=== PATIENT | male | born 1960 | race American Indian/Alaskan Native ===

== ENCOUNTER 2018-02-22 11:34 | Inpatient (IN) | payer MEDICAID ==
[2018-02-22 11:47] VITALS: BMI 17.7
[2018-02-22] MEDS ORDERED: guaiFENesin 100 mg/5 ml Syrup UD PO STA (12:07)
[2018-02-22] MEDS ORDERED: Albuterol-Ipratrop 3 mg / 0.5 (3 ml) UD INH STA (12:07)
[2018-02-22] MEDS ORDERED: guaiFENesin 100 mg/5 ml Syrup UD ONE (12:15)
[2018-02-22] MEDS ORDERED: Albuterol-Ipratrop 3 mg / 0.5 (3 ml) UD ONE (12:15)
[2018-02-22 13:55] LABS: BASO % 0.4 % (0.0-2.0); EOS # 0.1 K/uL (0.0-0.7); EOS % 4.9 % (0.0-4.0); HEMOGLOBIN 9.9 g/dL (12.0-18.0); LYMPH # 0.6 K/uL (1.0-4.3); LYMPH % 24.8 % (20.0-40.0); MEAN CELL VOLUME 92.5 fl (80.0-94.0); MEAN CORPUSCULAR HEMOGLOBIN 32.4 pg (27.0-31.0); MEAN CORPUSCULAR HGB CONC 35.1 g/dL (33.0-37.0); MEAN PLATELET VOLUME 9.1 fl (7.2-11.7); MONO # 0.4 K/uL (0.0-0.8); MONO % 16.8 % (0.0-10.0); NEUT # 1.3 K/uL (1.8-7.0); NEUT % 53.1 % (50.0-75.0); RBC 3.04 Mil/uL (4.40-5.90); RED CELL DISTRIBUTION WIDTH 14.1 % (11.5-14.5)
[2018-02-22 14:07] LABS: ALB/GLOB RATIO 0.7 (1.0-2.1); ALBUMIN 3.8 g/dL (3.5-5.0); ALT/SGPT 20 U/L (21-72); AST/SGOT 36 U/L (17-59); BLOOD UREA NITROGEN 17 mg/dl (9-20); CALCIUM 8.3 mg/dL (8.4-10.2); GFR AFRICAN-AMERICAN > 60; GFR NON-AFRICAN AMERICAN > 60
[2018-02-22 14:15] LABS: INR 1.1 (0.9-1.2); PARTIAL THROMBOPLASTIN TIME 32.5 Seconds (25.6-37.1); PROTHROMBIN TIME 11.9 Seconds (9.8-13.1)
[2018-02-22 14:24] LABS: B-TYPE NATRIURETIC PEPTIDE 126 pg/ml (0-900)
--- NOTE | 2018-02-22 14:33 | RAD ---
Date of service: 02/22/2018 HISTORY: cough COMPARISON: Chest 11/09/2009 TECHNIQUE: Chest PA and lateral FINDINGS: LUNGS: Lungs are hyperinflated suggesting underlying changes of COPD or emphysema. There also appears to be some mild bibasilar atelectasis and or scarring left greater than right. Small calcified granuloma right lateral upper lung field overlying the right anterior 4th and right posterior 7th ribs . There may also be a cluster of tiny calcifications right lateral lower lung zone near the CP angle region. . There is a small approximately 6.6 mm elliptical shaped nodular density left mid to lower lung zone in the mid clavicular line which could represent vessel on end artifact with small nodule not excluded. Followup nonemergent CT scan of the chest recommended. PLEURA: Mild biapical pleural thickening. No effusion or basilar pneumothorax CARDIOVASCULAR: Normal. OSSEOUS STRUCTURES: No significant abnormalities. VISUALIZED UPPER ABDOMEN: Normal. OTHER FINDINGS: None. IMPRESSION: Lungs are hyperinflated suggesting underlying changes of COPD or emphysema. There also appears to be some mild bibasilar atelectasis and or scarring left greater than right. Small calcified granuloma right lateral upper lung field overlying the right anterior 4th and right posterior 7th ribs . There may also be a cluster of tiny calcifications right lateral lower lung zone near the CP angle region. There is a small approximately 6.6 mm elliptical shaped nodular density left mid to lower lung zone in the mid clavicular line which could represent vessel on end artifact with small nodule not excluded. Followup nonemergent CT scan of the chest recommended. . Note this report was placed in PA review folder for followup
--- NOTE | 2018-02-22 14:36 | ED PDOC ---
HPI: SOB/CHF/COPD Time Seen by Provider: 02/22/18 11:52 Chief Complaint (Nursing): Shortness Of Breath Chief Complaint (Provider): Cough History Per: Patient History/Exam Limitations: no limitations Onset/Duration Of Symptoms: Days (x3) Current Symptoms Are (Timing): Still Present Associated Symptoms: Chest Pain. denies: Fever, Chills, Bloody Cough Additional Complaint(s): 57 year old male presents to the emergency department for evaluation of a wet cough productive of yellow phlegm x3 days. Patient reports that this morning at 9am he had a 10 minute episode of burning, sternal, nonradiating chest pain that resolved spontaneously. He states that he took no medications prior to arrival. Denies fever, chills, sick contacts, travel, ear or throat pain, prolonged immobility, personal or family history of heart disease, leg tenderness or swelling. Of note: Patient states that he is HIV postive and has not taken his medications in a month. Cannot recall last viral load. PMD: cannot recall, in [facility] Past Medical History Reviewed: Historical Data, Nursing Documentation, Vital Signs Vital Signs: Last Vital Signs Temp 98.5 F 02/22/18 16:08 Pulse 71 02/22/18 16:39 Resp 16 02/22/18 16:08 BP 150/89 02/22/18 16:08 Pulse Ox 93 L 02/22/18 16:39 - Medical History PMH: COPD, HIV - Surgical History Surgical History: No Surg Hx - Family History Family History: States: Unknown Family Hx - Social History Current smoker - smoking cessation education provided: Yes (3 cigarettes a day) Alcohol: None Drugs: Other (heroin) - Home Medications Home Medications: Ambulatory Orders Medication Instructions Recorded Methadone [Methadose] 70 mg PO DAILY 02/22/18 - Allergies Allergies/Adverse Reactions: Allergies Allergy/AdvReac Type Severity Reaction Status Date / Time No Known Allergies Allergy Verified 02/22/18 11:53 Review of Systems Constitutional: Negative for: Fever Cardiovascular: Positive for: Chest Pain Respiratory: Positive for: Cough (wet cough productive of yellow sputum). Negative for: Shortness of Breath Physical Exam - Reviewed Nursing Documentation Reviewed: Yes Vital Signs Reviewed: Yes - Physical Exam Comments: GENERAL APPEARANCE: Patient is awake, alert, oriented x 3, in no acute distress. Resting comfortably. SKIN: Warm, dry; (-) cyanosis. EYES: (-) conjunctival pallor. ENMT: Mucous membranes moist. Airway patent: (-) stridor. NECK: Supple, FROM (-) tenderness, (-) stiffness CHEST AND RESPIRATORY: (-) rhonchi, (-) rales, (-) wheezes, (-) pleural rub; breath sounds equal bilaterally. Speaking in full sentences, respirations even and nonlabored. HEART AND CARDIOVASCULAR: (-) irregularity; (-) murmur ABDOMEN AND GI: Soft; (-) tenderness (-) guarding (-) distention. EXTREMITIES: (-) deformity; (-) edema. NEURO AND PSYCH: Mental status as above. Cranial nerves grossly intact; strength symmetric. EOMI and painless. Speech clear. (-) focal deficit (-) facial asymmetry - Laboratory Results Result Diagrams: 02/22/18 12:41 02/22/18 12:41 - ECG ECG: Positive for: Viewed By Me ECG Rhythm: Negative for: ST/T Changes Rate: 71 (QTc 430, (+) LVH) O2 Sat by Pulse Oximetry: 93 (RA) Pulse Ox Interpretation: Normal (in patient with COPD) Medical Decision Making Medical Decision Makin Initial Impression 57 year old male presenting with cough r/o pneumonia Initial plan: * EKG * B-type Natriuretic * CMP * Drug Screen * Troponin * CBC * Partial Thromboplastin * Prothrombin Time * CXR * HIV-1 RNA, QL TMA * CD4/CD8 lymphocyte subset panel 4 * Albuterol 3 mL INH * Robitussin 200 mg PO * Reevaluation 1435 CXR reviewed, radiology report follows Date of service: 02/22/2018 HISTORY: cough COMPARISON: Chest 11/09/2009 TECHNIQUE: Chest PA and lateral FINDINGS: LUNGS: Lungs are hyperinflated suggesting underlying changes of COPD or emphysema. There also appears to be some mild bibasilar atelectasis and or scarring left greater than right. Small calcified granuloma right lateral upper lung field overlying the right anterior 4th and right posterior 7th ribs . There may also be a cluster of tiny calcifications right lateral lower lung zone near the CP angle region. . There is a small approximately 6.6 mm elliptical shaped nodular density left mid to lower lung zone in the mid clavicular line which could represent vessel on end artifact with small nodule not excluded. Followup nonemergent CT scan of the chest recommended. PLEURA: Mild biapical pleural thickening. No effusion or basilar pneumothorax CARDIOVASCULAR: Normal. OSSEOUS STRUCTURES: No significant abnormalities. VISUALIZED UPPER ABDOMEN: Normal. OTHER FINDINGS: None. IMPRESSION: Lungs are hyperinflated suggesting underlying changes of COPD or emphysema. There also appears to be some mild bibasilar atelectasis and or scarring left greater than right. Small calcified granuloma right lateral upper lung field overlying the right anterior 4th and right posterior 7th ribs . There may also be a cluster of tiny calcifications right lateral lower lung zone near the CP angle region. There is a small approximately 6.6 mm elliptical shaped nodular density left mid to lower lung zone in the mid clavicular line which could represent vessel on end artifact with small nodule not excluded. Followup nonemergent CT scan of the chest recommended. Note this report was placed in PA review folder for followup Labs reviewed. (+) thrombocytopenia (+) leukocytopenia (+) pancytopenia Case discussed with Dr Cunha, who recommends admission at this time. Consult placed to Dr Velasquez, hospitalist. CT chest without contrast ordered for further evaluation of lung nodules. Repeat O2: 98% on RA [address] Velasquez who is agreeable to evaluating patient in the ED. [address] Velasquez's evaluation, patient to be admitted to obs med/surg for pancytopenia, chest pain, cough r/o AIDs Arrangements made for admission. Patient agreeable to admission. Vitals stable. 1630 CT reviewed, radiology report follows Date of service: 02/22/2018 PROCEDURE: CT Chest without contrast HISTORY: nodules on XR, cough COMPARISON: None. TECHNIQUE: Contiguous axial images were obtained through the chest without intravenous contrast enhancement. Sagittal and coronal reconstructions were performed. Radiation dose (DLP): 167.7 MGy-cm. This CT exam was performed using one or more of the following dose reduction techniques: Automated exposure control, adjustment of the mA and/or kV according to patient size, and/or use of iterative reconstruction technique. FINDINGS: LUNGS: Significant centrilobular emphysematous changes are noted. . Bullous and bleb changes are also present the largest bulla in the left anteromedial upper lung field. In addition, there are of coarsened interstitial markings a particularly notable in the lung bases with passive/dependent type atelectasis. Small cluster of alveolar-type opacities in the right lower lobe bordering the posterior pleural surface and another in the right posterior sulcus could represent developing infiltrates. There is a small calcified granuloma in the right anterolateral lower lobe. MEDIASTINUM: Heart appears enlarged. . There also appears to be trace pericardial effusion. Unremarkable thoracic aorta. No aneurysm. Normal sized heart. Main pulmonary artery unremarkable. No vascular congestion. No significant mediastinal lymphadenopathy however note that the evaluation for hilar adenopathy limited due to the lack of circulating intravenous contrast material. Small hiatal hernia PLEURA: No effusion. No evidence of pneumothorax. BONES: Minor multilevel degenerative spondylosis of the lumbar spine. UPPER ABDOMEN: Few tiny calcified granulomata seen throughout the splenic parenchyma consistent with the prior exposure to granulomatous disease process OTHER FINDINGS: None. IMPRESSION: Significant centrilobular emphysematous changes are noted. . Bullous and bleb changes are also present the largest bulla in the left anteromedial upper lung field. In addition, there are of coarsened interstitial markings a particularly notable in the lung bases with passive/dependent type atelectasis. Small cluster of alveolar-type opacities in the right lower lobe bordering the posterior pleural surface and another in the right posterior sulcus could represent developing infiltrates. There is a small calcified granuloma in the right anterolateral lower lobe. Documented by Anahi Akhtar acting as a scribe for Brooklyn Lord PA-C. All medical record entries made by the Scribe were at my direction and personally dictated by me. I have reviewed the chart and agree that the record accurately reflects my personal performance of the history, physical exam, medical decision making, and the department course for this patient. I have also personally directed, reviewed, and agree with the discharge instructions and disposition. Disposition - Clinical Impression Clinical Impression: Pancytopenia, Cough in adult, HIV disease, Chest pain in adult - Patient ED Disposition Is Patient to be Admitted: Yes Discussed With : Myles D Velasquez Doctor Will See Patient In The: Hospital Counseled Patient/Family Regarding: Diagnosis - Disposition Disposition Time: 15:10 Condition: FAIR - Pt Status Changed To: Hospital Disposition Of: Inpatient - Admit Certification Admit to Inpatient:: After my assessment, the patient will require hospitalization for at least two midnights. This is because of the severity of symptoms shown, intensity of services needed, and/or the medical risk in this patient being treated as an outpatient. - POA Present On Arrival: None Results - Lab Results Lab Results: 02/22/18 02/22/18 02/22/18 12:41 12:41 12:41 WBC 2.5 L RBC 3.04 L Hgb 9.9 L Hct 28.1 L MCV 92.5 MCH 32.4 H MCHC 35.1 RDW 14.1 Plt Count 29 L* MPV 9.1 Neut % (Auto) 53.1 Lymph % (Auto) 24.8 [facility] % (Auto) 16.8 H Eos % (Auto) 4.9 H Baso % (Auto) 0.4 Neut # (Auto) 1.3 L Lymph # (Auto) 0.6 L [facility] # (Auto) 0.4 Eos # (Auto) 0.1 Baso # (Auto) 0.0 PT 11.9 INR 1.1 APTT 32.5 Sodium 139 Potassium 3.9 Chloride 106 Carbon Dioxide 24 Anion Gap 13 BUN 17 Creatinine 0.7 L Est GFR ( Amer) > 60 Est GFR (Non-Af Amer) > 60 Random Glucose 64 L Calcium 8.3 L Total Bilirubin 0.5 AST 36 ALT 20 L Alkaline Phosphatase 68 Troponin I < 0.0120 NT-Pro-B Natriuret Pep 126 Total Protein 9.1 H Albumin 3.8 Globulin 5.3 H Albumin/Globulin Ratio 0.7 L
--- NOTE | 2018-02-22 15:44 | CP.PCM.HP ---
History of Present Illness - History of Present Illness History of Present Illness: 57 yo male with history of HIV since 1997 and on triple therapy but missed taking it for over a month came in because of coughing productive with yellow sputum since 3 days ago. Pleuritic chest pain noted during couging. Denied fever or SOB. Patient is from [place] and is being followed up by a physician there. He claimed he lost his medications and was just here visiting a friend in [place]. Present on Admission - Present on Admission Any Indicators Present on Admission: No History of DVT/PE: No History of Uncontrolled Diabetes: No Urinary Catheter: No Decubitus Ulcer Present: No Review of Systems - Review of Systems All systems: reviewed and no additional remarkable complaints except (aside from those mentioned above, 12 point system review were negative by me) Past Patient History - Tetanus Immunizations Tetanus Immunization: Unknown - Past Social History Smoking Status: Light Smoker < 10 Cigarettes Daily Chewing Tobacco Use: No Cigar Use: No Alcohol: None Drugs: Denies, Other (heroin) Home Situation {Lives}: Friends - HEMATOLOGICAL/ONCOLOGICAL Hx Human Immunodeficiency Virus (HIV): Yes - PSYCHIATRIC Hx Substance Use: No - SURGICAL HISTORY Hx Surgeries: No - ANESTHESIA Hx Anesthesia: No Meds Allergies/Adverse Reactions: Allergies Allergy/AdvReac Type Severity Reaction Status Date / Time No Known Allergies Allergy Verified 02/22/18 11:53 Physical Exam - Constitutional Appears: No Acute Distress, Cachectic - Head Exam Head Exam: ATRAUMATIC - Eye Exam Eye Exam: absent: Scleral icterus - ENT Exam ENT Exam: Mucous Membranes Moist - Neck Exam Neck exam: Negative for: Meningismus - Respiratory Exam Respiratory Exam: absent: Rales, Rhonchi, Wheezes, Respiratory Distress - Cardiovascular Exam Cardiovascular Exam: REGULAR RHYTHM, +S1, +S2 - GI/Abdominal Exam GI & Abdominal Exam: Soft. absent: Tenderness - Rectal Exam Rectal Exam: Deferred - Extremities Exam Extremities exam: Negative for: pedal edema - Neurological Exam Neurological exam: Alert, Oriented x3 - Psychiatric Exam Psychiatric exam: Normal Affect - Skin Skin Exam: Dry, Intact Results - Vital Signs Recent Vital Signs: Last Vital Signs Temp 98.5 F 02/22/18 14:57 Pulse 74 02/22/18 14:57 Resp 20 02/22/18 14:57 BP 146/92 H 02/22/18 15:25 Pulse Ox 93 L 02/22/18 15:20 - Labs Result Diagrams: 02/22/18 12:41 02/22/18 12:41 Labs: Laboratory Results - last 24 hr 02/22/18 02/22/18 02/22/18 12:41 12:41 12:41 WBC 2.5 L RBC 3.04 L Hgb 9.9 L Hct 28.1 L MCV 92.5 MCH 32.4 H MCHC 35.1 RDW 14.1 Plt Count 29 L* MPV 9.1 Neut % (Auto) 53.1 Lymph % (Auto) 24.8 [facility] % (Auto) 16.8 H Eos % (Auto) 4.9 H Baso % (Auto) 0.4 Neut # (Auto) 1.3 L Lymph # (Auto) 0.6 L [facility] # (Auto) 0.4 Eos # (Auto) 0.1 Baso # (Auto) 0.0 PT 11.9 INR 1.1 APTT 32.5 Sodium 139 Potassium 3.9 Chloride 106 Carbon Dioxide 24 Anion Gap 13 BUN 17 Creatinine 0.7 L Est GFR ( Amer) > 60 Est GFR (Non-Af Amer) > 60 Random Glucose 64 L Calcium 8.3 L Total Bilirubin 0.5 AST 36 ALT 20 L Alkaline Phosphatase 68 Troponin I < 0.0120 NT-Pro-B Natriuret Pep 126 Total Protein 9.1 H Albumin 3.8 Globulin 5.3 H Albumin/Globulin Ratio 0.7 L Assessment & Plan - Assessment and Plan (Free Text) Assessment: 57 yo male with history of COPD and HIV since 1997 and on triple therapy but missed taking it for over a month came in because of coughing productive with yellow sputum since 3 days ago. Pleuritic chest pain noted during coughing. Denied fever or SOB. 1. HIV patient on Triple anti-viral but not sure what doses follow up CD4/CD8 result ID consult with Dr Bay 2. Right Lower Lobe Infiltrate (CT scan) sputum and blood culture Rocephin 1gm IV daily Zithromax 500mg IV daily 3. Pancytopenia probably secondary to HIV hematology consult with Dr Osorio 4. Heroin Abuser on Methadone 70mg PO daily 5. DVT prophylaxis venodyne boots while in bed avoid anti-coagulant because of low platelets
[2018-02-22] MEDS ORDERED: Albuterol-Ipratrop 3 mg / 0.5 (3 ml) UD INH PRN (16:02)
--- NOTE | 2018-02-22 16:19 | CT ---
Date of service: 02/22/2018 PROCEDURE: CT Chest without contrast HISTORY: nodules on XR, cough COMPARISON: None. TECHNIQUE: Contiguous axial images were obtained through the chest without intravenous contrast enhancement. Sagittal and coronal reconstructions were performed. Radiation dose (DLP): 167.7 MGy-cm. This CT exam was performed using one or more of the following dose reduction techniques: Automated exposure control, adjustment of the mA and/or kV according to patient size, and/or use of iterative reconstruction technique. FINDINGS: LUNGS: Significant centrilobular emphysematous changes are noted. . Bullous and bleb changes are also present the largest bulla in the left anteromedial upper lung field. In addition, there are of coarsened interstitial markings a particularly notable in the lung bases with passive/dependent type atelectasis. Small cluster of alveolar-type opacities in the right lower lobe bordering the posterior pleural surface and another in the right posterior sulcus could represent developing infiltrates. There is a small calcified granuloma in the right anterolateral lower lobe. MEDIASTINUM: Heart appears enlarged. . There also appears to be trace pericardial effusion. Unremarkable thoracic aorta. No aneurysm. Normal sized heart. Main pulmonary artery unremarkable. No vascular congestion. No significant mediastinal lymphadenopathy however note that the evaluation for hilar adenopathy limited due to the lack of circulating intravenous contrast material. Small hiatal hernia PLEURA: No effusion. No evidence of pneumothorax. BONES: Minor multilevel degenerative spondylosis of the lumbar spine. UPPER ABDOMEN: Few tiny calcified granulomata seen throughout the splenic parenchyma consistent with the prior exposure to granulomatous disease process OTHER FINDINGS: None. IMPRESSION: Significant centrilobular emphysematous changes are noted. . Bullous and bleb changes are also present the largest bulla in the left anteromedial upper lung field. In addition, there are of coarsened interstitial markings a particularly notable in the lung bases with passive/dependent type atelectasis. Small cluster of alveolar-type opacities in the right lower lobe bordering the posterior pleural surface and another in the right posterior sulcus could represent developing infiltrates. There is a small calcified granuloma in the right anterolateral lower lobe.
[2018-02-22 17:21] LABS: BARBITURATES, UR NEGATIVE (NEGATIVE); BENZODIAZEPINES, UR NEGATIVE (NEGATIVE); OPIATES, UR POSITIVE (NEGATIVE); PHENCYCLIDINE, UR NEGATIVE (NEGATIVE)
[2018-02-22] MEDS ORDERED: Sodium Chloride 3% for Inhalation 4 ML VIAL.NEB IH PRN (18:53)
--- NOTE | 2018-02-22 18:55 | CP.PCM.CON ---
History of Present Illness - History of Present Illness History of Present Illness: Infectious Disease Consultation Note- asked to see this patient at the request of hospitalist HPI- Patient is a 57 year old male with HIV who was admitted yesterday for c/o cough with productive of phlegm and some sob for past 3 days. Denied fever or SOB. Patient is from [place] and is being followed up by a physician there. He claimed he lost his medications and was just here visiting a friend in [place]. he states he was on prezista/norvir , truvada but recently his doctor in [place] changed his regimen but he does not recall the name of the new regimen. He states his CD4 has never been high. He states he feels better since admission here and denies any fever or chills. still has cough but is less than before and no sob today. he states his appetite is good and denies any nausea or vomiting. denies any diarrhea, denies any abd. pain, denies any dysurea. Review of Systems - Review of Systems Review of Systems: ROS- as stated HPi Past Patient History - Tetanus Immunizations Tetanus Immunization: Unknown - Past Medical History & Family History Past Medical History?: Yes - Past Social History Smoking Status: Light Smoker < 10 Cigarettes Daily - CARDIAC Hx Cardiac Disorders: No - PULMONARY Hx Respiratory Disorders: Yes Hx Chronic Obstructive Pulmonary Disease (COPD): Yes - NEUROLOGICAL Hx Neurological Disorder: No - HEENT Hx HEENT Problems: No - RENAL Hx Chronic Kidney Disease: No - ENDOCRINE/METABOLIC Hx Endocrine Disorders: No - HEMATOLOGICAL/ONCOLOGICAL Hx Blood Disorders: Yes Hx Human Immunodeficiency Virus (HIV): Yes - INTEGUMENTARY Hx Dermatological Problems: No - MUSCULOSKELETAL/RHEUMATOLOGICAL Hx Musculoskeletal Disorders: No Hx Falls: No - GASTROINTESTINAL Hx Gastrointestinal Disorders: No - GENITOURINARY/GYNECOLOGICAL Hx Genitourinary Disorders: No - PSYCHIATRIC Hx Psychophysiologic Disorder: No Hx Substance Use: Yes (heroin) - SURGICAL HISTORY Hx Surgeries: No - ANESTHESIA Hx Anesthesia: No Hx Anesthesia Reactions: No Hx Malignant Hyperthermia: No Has any member of the family had a problem w/ anesthesia?: No Meds Allergies/Adverse Reactions: Allergies Allergy/AdvReac Type Severity Reaction Status Date / Time No Known Allergies Allergy Verified 02/22/18 11:53 - Medications Medications: Current Medications Albuterol/Ipratropium (Duoneb 3 Mg/0.5 Mg (3 Ml) Ud) 3 ml INH RQ6 PRN PRN Reason: Shortness of Breath Docusate Sodium (Colace) 100 mg PO BID [facility] Last Admin: 02/22/18 17:35 Dose: 100 mg Pantoprazole Sodium (Protonix Ec Tab) 40 mg PO DAILY [facility] Physical Exam - Constitutional Appears: No Acute Distress - Head Exam Head Exam: ATRAUMATIC - Eye Exam Eye Exam: EOMI - ENT Exam ENT Exam: Normal Oropharynx - Neck Exam Neck exam: Positive for: Full Rom - Respiratory Exam Respiratory Exam: NORMAL BREATHING PATTERN Additional comments: good aeration b/l no wheezing slightly decreased at right base - Cardiovascular Exam Cardiovascular Exam: RRR, +S1, +S2 - GI/Abdominal Exam GI & Abdominal Exam: Normal Bowel Sounds, Soft Additional comments: NT, ND - Extremities Exam Extremities exam: Positive for: normal inspection - Neurological Exam Neurological exam: Alert, Oriented x3 Results - Vital Signs Recent Vital Signs: Last Vital Signs Temp 98.1 F 02/22/18 17:23 Pulse 60 02/22/18 17:23 Resp 18 02/22/18 17:23 BP 158/89 H 02/22/18 17:23 Pulse Ox 97 02/22/18 17:23 - Labs Result Diagrams: 02/23/18 05:25 02/23/18 05:25 Labs: Laboratory Results - last 24 hr 02/22/18 02/22/18 02/22/18 12:41 12:41 12:41 WBC 2.5 L RBC 3.04 L Hgb 9.9 L Hct 28.1 L MCV 92.5 MCH 32.4 H MCHC 35.1 RDW 14.1 Plt Count 29 L* MPV 9.1 Neut % (Auto) 53.1 Lymph % (Auto) 24.8 [place] % (Auto) 16.8 H Eos % (Auto) 4.9 H Baso % (Auto) 0.4 Neut # (Auto) 1.3 L Lymph # (Auto) 0.6 L [place] # (Auto) 0.4 Eos # (Auto) 0.1 Baso # (Auto) 0.0 PT 11.9 INR 1.1 APTT 32.5 Sodium 139 Potassium 3.9 Chloride 106 Carbon Dioxide 24 Anion Gap 13 BUN 17 Creatinine 0.7 L Est GFR ( Amer) > 60 Est GFR (Non-Af Amer) > 60 Random Glucose 64 L Calcium 8.3 L Total Bilirubin 0.5 AST 36 ALT 20 L Alkaline Phosphatase 68 Troponin I < 0.0120 NT-Pro-B Natriuret Pep 126 Total Protein 9.1 H Albumin 3.8 Globulin 5.3 H Albumin/Globulin Ratio 0.7 L Urine Opiates Screen Urine Methadone Screen Ur Barbiturates Screen Ur Phencyclidine Scrn Ur Amphetamines Screen U Benzodiazepines Scrn U Oth Cocaine Metabols U Cannabinoids Screen 02/22/18 16:30 WBC RBC Hgb Hct MCV MCH MCHC RDW Plt Count MPV Neut % (Auto) Lymph % (Auto) [place] % (Auto) Eos % (Auto) Baso % (Auto) Neut # (Auto) Lymph # (Auto) [place] # (Auto) Eos # (Auto) Baso # (Auto) PT INR APTT Sodium Potassium Chloride Carbon Dioxide Anion Gap BUN Creatinine Est GFR ( Amer) Est GFR (Non-Af Amer) Random Glucose Calcium Total Bilirubin AST ALT Alkaline Phosphatase Troponin I NT-Pro-B Natriuret Pep Total Protein Albumin Globulin Albumin/Globulin Ratio Urine Opiates Screen Positive H Urine Methadone Screen Positive H Ur Barbiturates Screen Negative Ur Phencyclidine Scrn Negative Ur Amphetamines Screen Negative U Benzodiazepines Scrn Negative U Oth Cocaine Metabols Positive H U Cannabinoids Screen Negative Laboratory Results - last 72 hr 02/22/18 02/22/18 02/22/18 12:41 12:41 12:41 WBC 2.5 L RBC 3.04 L Hgb 9.9 L Hct 28.1 L MCV 92.5 MCH 32.4 H MCHC 35.1 RDW 14.1 Plt Count 29 L* MPV 9.1 Neut % (Auto) 53.1 Lymph % (Auto) 24.8 [place] % (Auto) 16.8 H Eos % (Auto) 4.9 H Baso % (Auto) 0.4 Neut # (Auto) 1.3 L Lymph # (Auto) 0.6 L [place] # (Auto) 0.4 Eos # (Auto) 0.1 Baso # (Auto) 0.0 PT 11.9 INR 1.1 APTT 32.5 Sodium 139 Potassium 3.9 Chloride 106 Carbon Dioxide 24 Anion Gap 13 BUN 17 Creatinine 0.7 L Est GFR ( Amer) > 60 Est GFR (Non-Af Amer) > 60 Random Glucose 64 L Calcium 8.3 L Total Bilirubin 0.5 AST 36 ALT 20 L Alkaline Phosphatase 68 Troponin I < 0.0120 NT-Pro-B Natriuret Pep 126 Total Protein 9.1 H Albumin 3.8 Globulin 5.3 H Albumin/Globulin Ratio 0.7 L Urine Opiates Screen Urine Methadone Screen Ur Barbiturates Screen Ur Phencyclidine Scrn Ur Amphetamines Screen U Benzodiazepines Scrn U Oth Cocaine Metabols U Cannabinoids Screen 02/22/18 02/23/18 02/23/18 16:30 05:25 05:25 WBC 1.8 L* RBC 3.54 L Hgb 11.1 L Hct 32.3 L MCV 91.1 MCH 31.2 H MCHC 34.3 RDW 13.8 Plt Count 44 L MPV 9.1 Neut % (Auto) 50.5 Lymph % (Auto) 30.3 [place] % (Auto) 12.9 H Eos % (Auto) 5.3 H Baso % (Auto) 1.0 Neut # (Auto) 0.9 L Lymph # (Auto) 0.5 L [place] # (Auto) 0.2 Eos # (Auto) 0.1 Baso # (Auto) 0.0 PT INR APTT Sodium 140 Potassium 3.9 Chloride 105 Carbon Dioxide 25 Anion Gap 14 BUN 13 Creatinine 0.7 L Est GFR ( Amer) > 60 Est GFR (Non-Af Amer) > 60 Random Glucose 91 Calcium 8.8 Total Bilirubin AST ALT Alkaline Phosphatase Troponin I NT-Pro-B Natriuret Pep Total Protein Albumin Globulin Albumin/Globulin Ratio Urine Opiates Screen Positive H Urine Methadone Screen Positive H Ur Barbiturates Screen Negative Ur Phencyclidine Scrn Negative Ur Amphetamines Screen Negative U Benzodiazepines Scrn Negative U Oth Cocaine Metabols Positive H U Cannabinoids Screen Negative Accession No. : [id number] Patient Name / ID : RONDA HICKS / [id number] Exam Date : 02/22/2018 11:59:27 ( Approved ) Study Comment : Sex / Age : M / 57Y Creator : Hermilo Betts MD Dictator : Greens Planter : Seasonal Greenery Bundler : Hermilo Betts MD Approver2 : Report Date : 02/22/2018 14:30:29 My Comment : Date of service: 02/22/2018 HISTORY: cough COMPARISON: Chest 11/09/2009 TECHNIQUE: Chest PA and lateral FINDINGS: LUNGS: Lungs are hyperinflated suggesting underlying changes of COPD or emphysema. There also appears to be some mild bibasilar atelectasis and or scarring left greater than right. Small calcified granuloma right lateral upper lung field overlying the right anterior 4th and right posterior 7th ribs . There may also be a cluster of tiny calcifications right lateral lower lung zone near the CP angle region. . There is a small approximately 6.6 mm elliptical shaped nodular density left mid to lower lung zone in the mid clavicular line which could represent vessel on end artifact with small nodule not excluded. Followup nonemergent CT scan of the chest recommended. PLEURA: Mild biapical pleural thickening. No effusion or basilar pneumothorax CARDIOVASCULAR: Normal. OSSEOUS STRUCTURES: No significant abnormalities. VISUALIZED UPPER ABDOMEN: Normal. OTHER FINDINGS: None. IMPRESSION: Lungs are hyperinflated suggesting underlying changes of COPD or emphysema. There also appears to be some mild bibasilar atelectasis and or scarring left greater than right. Small calcified granuloma right lateral upper lung field overlying the right anterior 4th and right posterior 7th ribs . There may also be a cluster of tiny calcifications right lateral lower lung zone near the CP angle region. There is a small approximately 6.6 mm elliptical shaped nodular density left mid to lower lung zone in the mid clavicular line which could represent vessel on end artifact with small nodule not excluded. Followup nonemergent CT scan of the chest recommended. . Note this report was placed in PA review folder for followup Accession No. : [id number] Patient Name / ID : RONDA HICKS / [id number] Exam Date : 02/22/2018 15:04:21 ( Approved ) Study Comment : Sex / Age : M / 57Y Creator : Hermilo Betts MD Dictator : Greens Planter : Seasonal Greenery Bundler : Hermilo Betts MD Approver2 : Report Date : 02/22/2018 16:17:33 My Comment : Date of service: 02/22/2018 PROCEDURE: CT Chest without contrast HISTORY: nodules on XR, cough COMPARISON: None. TECHNIQUE: Contiguous axial images were obtained through the chest without intravenous contrast enhancement. Sagittal and coronal reconstructions were performed. Radiation dose (DLP): 167.7 MGy-cm. This CT exam was performed using one or more of the following dose reduction techniques: Automated exposure control, adjustment of the mA and/or kV according to patient size, and/or use of iterative reconstruction technique. FINDINGS: LUNGS: Significant centrilobular emphysematous changes are noted. . Bullous and bleb changes are also present the largest bulla in the left anteromedial upper lung field. In addition, there are of coarsened interstitial markings a particularly notable in the lung bases with passive/dependent type atelectasis. Small cluster of alveolar-type opacities in the right lower lobe bordering the posterior pleural surface and another in the right posterior sulcus could represent developing infiltrates. There is a small calcified granuloma in the right anterolateral lower lobe. MEDIASTINUM: Heart appears enlarged. . There also appears to be trace pericardial effusion. Unremarkable thoracic aorta. No aneurysm. Normal sized heart. Main pulmonary artery unremarkable. No vascular congestion. No significant mediastinal lymphadenopathy however note that the evaluation for hilar adenopathy limited due to the lack of circulating intravenous contrast material. Small hiatal hernia PLEURA: No effusion. No evidence of pneumothorax. BONES: Minor multilevel degenerative spondylosis of the lumbar spine. UPPER ABDOMEN: Few tiny calcified granulomata seen throughout the splenic parenchyma consistent with the prior exposure to granulomatous disease process OTHER FINDINGS: None. IMPRESSION: Significant centrilobular emphysematous changes are noted. . Bullous and bleb changes are also present the largest bulla in the left anteromedial upper lung field. In addition, there are of coarsened interstitial markings a particularly notable in the lung bases with passive/dependent type atelectasis. Small cluster of alveolar-type opacities in the right lower lobe bordering the posterior pleural surface and another in the right posterior sulcus could represent developing infiltrates. There is a small calcified granuloma in the right anterolateral lower lobe. Assessment & Plan (1) Cough in adult Status: Acute (2) HIV disease Status: Acute (3) Pancytopenia Status: Acute (4) Pneumonia Status: Acute (5) COPD (chronic obstructive pulmonary disease) Status: Acute (6) Lung granuloma Status: Acute - Assessment and Plan (Free Text) Assessment: A/P- 57 year old male with hIV was on HAARt meds apparently has not taken it in [place] admitted with cough and sob and found to have b/l lung abse ? atelectasisi vs infiltrates and granuloma lesion in lung and some calcifications in lung as per CT report and CXr report read by radiologist. afebrile leukopenic but not neutropenic his ANC is 900. pancytopenia could be secondary to HIV marrow infiltration itself vs other etiology such as disseminated MAC. plan- check CD4 and VL. check quantiferon Gold. would advise to r/o MTB with sputum AFB x 3. Place on [facility] isolation check regular sputum cx aswell. check mycoplasma serology and urine legionella AG. agree with ceftriaxone and zithromax to cover for CAP. would also advise pulmonary evaluation. Thank you for allowing me to take part in the care of this patient. All above d/w patient and he agrees with above plan of care.
[2018-02-22 20:15] LABS: WHITE BLOOD COUNT 2.5 K/uL (4.8-10.8)
[2018-02-23 06:32] LABS: EOS # 0.1 K/uL (0.0-0.7); EOS % 5.3 % (0.0-4.0); HEMOGLOBIN 11.1 g/dL (12.0-18.0); LYMPH # 0.5 K/uL (1.0-4.3); LYMPH % 30.3 % (20.0-40.0); MEAN CELL VOLUME 91.1 fl (80.0-94.0); MEAN CORPUSCULAR HEMOGLOBIN 31.2 pg (27.0-31.0); MEAN CORPUSCULAR HGB CONC 34.3 g/dL (33.0-37.0); MEAN PLATELET VOLUME 9.1 fl (7.2-11.7); MONO # 0.2 K/uL (0.0-0.8); MONO % 12.9 % (0.0-10.0); NEUT # 0.9 K/uL (1.8-7.0); NEUT % 50.5 % (50.0-75.0); NRBC % 0.2 % (0.0-0.0); RBC 3.54 Mil/uL (4.40-5.90); RED CELL DISTRIBUTION WIDTH 13.8 % (11.5-14.5)
[2018-02-23 06:44] LABS: WHITE BLOOD COUNT 1.8 K/uL (4.8-10.8)
[2018-02-23 07:01] LABS: BLOOD UREA NITROGEN 13 mg/dl (9-20); CALCIUM 8.8 mg/dL (8.4-10.2); GFR AFRICAN-AMERICAN > 60; GFR NON-AFRICAN AMERICAN > 60
--- NOTE | 2018-02-23 08:18 | CP.PCM.PN ---
Subjective - Date & Time of Evaluation Date of Evaluation: 02/23/18 Time of Evaluation: 08:17 - Subjective Subjective: pt states he feels well today no sob, cp, calf tenderness hd stable nad placed on precautions today Objective - Vital Signs/Intake and Output Vital Signs (last 24 hours): Temp Pulse Resp BP Pulse Ox 98.5 F 60 19 157/79 H 97 02/23/18 00:00 02/23/18 00:00 02/23/18 00:00 02/23/18 00:00 02/23/18 00:00 Vitals Reviewed GEN: WDWN, alert, cooperative HEENT: NCAT, PERRL, EOMI HEART: RRR, +S1S2, NO MRG LUNG: CTAB, NO WRR ABD: soft, NT, ND, No HSM, No masses EXT: normal pedal pulses, normal capillary refill NEURO: awake, alert, no focal deficits SKIN: warm, dry PSYCH: normal mood, normal affect - Medications Medications: Current Medications Albuterol/Ipratropium (Duoneb 3 Mg/0.5 Mg (3 Ml) Ud) 3 ml INH RQ6 PRN PRN Reason: Shortness of Breath Docusate Sodium (Colace) 100 mg PO BID [facility] Last Admin: 02/22/18 17:35 Dose: 100 mg Azithromycin 500 mg/ Sodium (Chloride) 250 mls @ 250 mls/hr IVPB DAILY [facility] PRN Reason: Protocol Ceftriaxone Sodium 1 gm/ (Sodium Chloride) 100 mls @ 100 mls/hr IVPB DAILY [facility] Methadone HCl (Methadone) 70 mg PO DAILY [facility] Pantoprazole Sodium (Protonix Ec Tab) 40 mg PO DAILY [facility] - Labs Labs: 02/23/18 05:25 02/23/18 05:25 PT 11.9 Seconds (9.8-13.1) 02/22/18 12:41 INR 1.1 (0.9-1.2) 02/22/18 12:41 APTT 32.5 Seconds (25.6-37.1) 02/22/18 12:41 Assessment and Plan - Assessment and Plan (Free Text) Plan: 57 yo male with history of COPD and HIV since 1997 and on triple therapy but missed taking it for over a month came in because of coughing productive with yellow sputum since 3 days ago. Pleuritic chest pain noted during coughing. Denied fever or SOB. 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
[2018-02-23] MEDS ORDERED: cefTRIAXone 1,000 MG in PED IV SYRINGE 1 SYR IVPB SCH (09:00)
[2018-02-23] MEDS: Pantoprazole 40 mg EC Tab PO SCH (09:59)
[2018-02-23] MEDS: Azithromycin 500 MG in Sodium Chloride 0.9% 250 ML IVPB SCH (10:00)
--- NOTE | 2018-02-23 10:07 | CARD ---
APPROVED REPORT Date of service: 02/22/2018 EKG Measurement Heart [id number] <Conclusion> Normal sinus rhythm Possible Left atrial enlargement Left ventricular hypertrophy Abnormal ECG
--- NOTE | 2018-02-23 22:02 | CP.PCM.CON ---
History of Present Illness - History of Present Illness History of Present Illness: 57 year old male with a history of HIV on intermittent HAART, admitted with cough, shortness of breath, chest pain with pancytopenia. The patient is unaware of having blood problems in the past. He has not been taking HAART for the last few months. He denies abnormal bleeding and bruising. Past medical history: HIV Past surgical history: Denies Family history: Denies hematologic and oncologic problems Social history: Smokes 3 cigarettes daily, denies alcohol, and illicit drug use. Allergies: NKA Review of systems: All remaining review of systems including HEENT, cardiovascular, respiratory, gastrointestinal, genitourinary, musculoskeletal, dermatologic, neurologic, and psychiatric are negative unless mentioned in the HPI Past Patient History - Tetanus Immunizations Tetanus Immunization: Unknown - Past Medical History & Family History Past Medical History?: Yes - Past Social History Smoking Status: Light Smoker < 10 Cigarettes Daily - CARDIAC Hx Cardiac Disorders: No - PULMONARY Hx Respiratory Disorders: Yes Hx Chronic Obstructive Pulmonary Disease (COPD): Yes - NEUROLOGICAL Hx Neurological Disorder: No - HEENT Hx HEENT Problems: No - RENAL Hx Chronic Kidney Disease: No - ENDOCRINE/METABOLIC Hx Endocrine Disorders: No - HEMATOLOGICAL/ONCOLOGICAL Hx Blood Disorders: Yes Hx Human Immunodeficiency Virus (HIV): Yes - INTEGUMENTARY Hx Dermatological Problems: No - MUSCULOSKELETAL/RHEUMATOLOGICAL Hx Musculoskeletal Disorders: No Hx Falls: No - GASTROINTESTINAL Hx Gastrointestinal Disorders: No - GENITOURINARY/GYNECOLOGICAL Hx Genitourinary Disorders: No - PSYCHIATRIC Hx Psychophysiologic Disorder: No Hx Substance Use: Yes (heroin) - SURGICAL HISTORY Hx Surgeries: No - ANESTHESIA Hx Anesthesia: No Hx Anesthesia Reactions: No Hx Malignant Hyperthermia: No Has any member of the family had a problem w/ anesthesia?: No Meds Allergies/Adverse Reactions: Allergies Allergy/AdvReac Type Severity Reaction Status Date / Time No Known Allergies Allergy Verified 02/22/18 11:53 - Medications Medications: Current Medications Albuterol/Ipratropium (Duoneb 3 Mg/0.5 Mg (3 Ml) Ud) 3 ml INH RQ6 PRN PRN Reason: Shortness of Breath Docusate Sodium (Colace) 100 mg PO BID [facility] Last Admin: 02/23/18 17:03 Dose: 100 mg Azithromycin 500 mg/ Sodium (Chloride) 250 mls @ 250 mls/hr IVPB DAILY [facility] PRN Reason: Protocol Last Admin: 02/23/18 10:00 Dose: 250 mls/hr Ceftriaxone Sodium 1 gm/ (Sodium Chloride) 100 mls @ 100 mls/hr IVPB DAILY [facility] Last Admin: 02/23/18 09:59 Dose: 100 mls/hr Methadone HCl (Methadone) 70 mg PO DAILY [facility] Last Admin: 02/23/18 09:58 Dose: 70 mg Pantoprazole Sodium (Protonix Ec Tab) 40 mg PO DAILY [facility] Last Admin: 02/23/18 09:59 Dose: 40 mg Physical Exam - Head Exam Head Exam: ATRAUMATIC - Eye Exam Eye Exam: Normal appearance - ENT Exam ENT Exam: Mucous Membranes Dry - Respiratory Exam Respiratory Exam: NORMAL BREATHING PATTERN - Cardiovascular Exam Cardiovascular Exam: +S1, +S2 - GI/Abdominal Exam GI & Abdominal Exam: Normal Bowel Sounds - Extremities Exam Extremities exam: Positive for: normal inspection - Neurological Exam Neurological exam: Oriented x3 - Psychiatric Exam Psychiatric exam: Normal Affect, Normal Mood - Skin Skin Exam: Warm Results - Vital Signs Recent Vital Signs: Last Vital Signs Temp 98.5 F 02/23/18 15:45 Pulse 53 L 02/23/18 15:45 Resp 19 02/23/18 15:45 BP 132/80 02/23/18 15:45 Pulse Ox 99 02/23/18 15:45 - Labs Result Diagrams: 02/23/18 05:25 02/23/18 05:25 Labs: Laboratory Results - last 24 hr 02/23/18 02/23/18 05:25 05:25 WBC 1.8 L* RBC 3.54 L Hgb 11.1 L Hct 32.3 L MCV 91.1 MCH 31.2 H MCHC 34.3 RDW 13.8 Plt Count 44 L MPV 9.1 Neut % (Auto) 50.5 Lymph % (Auto) 30.3 [place] % (Auto) 12.9 H Eos % (Auto) 5.3 H Baso % (Auto) 1.0 Neut # (Auto) 0.9 L Lymph # (Auto) 0.5 L [place] # (Auto) 0.2 Eos # (Auto) 0.1 Baso # (Auto) 0.0 Sodium 140 Potassium 3.9 Chloride 105 Carbon Dioxide 25 Anion Gap 14 BUN 13 Creatinine 0.7 L Est GFR ( Amer) > 60 Est GFR (Non-Af Amer) > 60 Random Glucose 91 Calcium 8.8 Assessment & Plan (1) Pancytopenia Assessment and Plan: likely HIV related mild to moderate neutropenia; does not require growth factor support will check iron, b12, folate stores no current transfusion indication declined bone marrow evaluation ?infiltrative bone marrow pathology Thank you for this interesting consult. Status: Acute
[2018-02-24 06:37] LABS: MEAN CORPUSCULAR HGB CONC 34.1 g/dL (33.0-37.0); RBC 3.22 Mil/uL (4.40-5.90); RED CELL DISTRIBUTION WIDTH 14.3 % (11.5-14.5)
[2018-02-24 06:48] LABS: WHITE BLOOD COUNT 1.7 K/uL (4.8-10.8)
[2018-02-24 06:54] LABS: ALB/GLOB RATIO 0.7 (1.0-2.1); ALBUMIN 3.5 g/dL (3.5-5.0); ALT/SGPT 16 U/L (21-72); AST/SGOT 29 U/L (17-59); BLOOD UREA NITROGEN 18 mg/dl (9-20); CALCIUM 8.6 mg/dL (8.4-10.2); GFR AFRICAN-AMERICAN > 60; GFR NON-AFRICAN AMERICAN > 60
[2018-02-24] MEDS: Azithromycin 500 MG in Sodium Chloride 0.9% 250 ML IVPB SCH (08:50)
[2018-02-24] MEDS: Pantoprazole 40 mg EC Tab PO SCH (08:50)
[2018-02-24 12:55] LABS: FOLATE 9.8 ng/mL
--- NOTE | 2018-02-24 14:58 | CP.PCM.CON ---
History of Present Illness - History of Present Illness History of Present Illness: 57 YR OLD MALE REFERRED FOR PULMONARY EVALUATION.PT WAS ADMITTED WITH COUGH, SPUTUM PRODUCTION ,SOB AND PANCYTOPENIA. HE HAS A HISTORY OF HIV DISEASE WITH ?COMPLIANCE TO MEDS AND THERAPY. HX OF CHRONIC CIGARETTE SMOKING X MANY YEARS. Past Patient History - Tetanus Immunizations Tetanus Immunization: Unknown - Past Medical History & Family History Past Medical History?: Yes - Past Social History Smoking Status: Light Smoker < 10 Cigarettes Daily - CARDIAC Hx Cardiac Disorders: No - PULMONARY Hx Respiratory Disorders: Yes Hx Chronic Obstructive Pulmonary Disease (COPD): Yes - NEUROLOGICAL Hx Neurological Disorder: No - HEENT Hx HEENT Problems: No - RENAL Hx Chronic Kidney Disease: No - ENDOCRINE/METABOLIC Hx Endocrine Disorders: No - HEMATOLOGICAL/ONCOLOGICAL Hx Blood Disorders: Yes Hx Human Immunodeficiency Virus (HIV): Yes - INTEGUMENTARY Hx Dermatological Problems: No - MUSCULOSKELETAL/RHEUMATOLOGICAL Hx Musculoskeletal Disorders: No Hx Falls: No - GASTROINTESTINAL Hx Gastrointestinal Disorders: No - GENITOURINARY/GYNECOLOGICAL Hx Genitourinary Disorders: No - PSYCHIATRIC Hx Psychophysiologic Disorder: No Hx Substance Use: Yes (heroin) - SURGICAL HISTORY Hx Surgeries: No - ANESTHESIA Hx Anesthesia: No Hx Anesthesia Reactions: No Hx Malignant Hyperthermia: No Has any member of the family had a problem w/ anesthesia?: No Meds Allergies/Adverse Reactions: Allergies Allergy/AdvReac Type Severity Reaction Status Date / Time No Known Allergies Allergy Verified 02/22/18 11:53 - Medications Medications: Current Medications Albuterol/Ipratropium (Duoneb 3 Mg/0.5 Mg (3 Ml) Ud) 3 ml INH RQ6 PRN PRN Reason: Shortness of Breath Docusate Sodium (Colace) 100 mg PO BID [facility] Last Admin: 02/24/18 08:50 Dose: 100 mg Azithromycin 500 mg/ Sodium (Chloride) 250 mls @ 250 mls/hr IVPB DAILY [facility] PRN Reason: Protocol Last Admin: 02/24/18 08:50 Dose: 250 mls/hr Ceftriaxone Sodium 1 gm/ (Sodium Chloride) 100 mls @ 100 mls/hr IVPB DAILY [facility] Last Admin: 02/24/18 08:51 Dose: 100 mls/hr Methadone HCl (Methadone) 70 mg PO DAILY [facility] Last Admin: 02/24/18 08:57 Dose: 70 mg Pantoprazole Sodium (Protonix Ec Tab) 40 mg PO DAILY [facility] Last Admin: 02/24/18 08:50 Dose: 40 mg Physical Exam - Constitutional Appears: Cachectic - Head Exam Head Exam: ATRAUMATIC, NORMAL INSPECTION, NORMOCEPHALIC - Eye Exam Eye Exam: EOMI, Normal appearance, PERRL Pupil Exam: NORMAL ACCOMODATION, PERRL - ENT Exam ENT Exam: Mucous Membranes Moist, Normal Exam - Neck Exam Neck exam: Positive for: Normal Inspection - Respiratory Exam Respiratory Exam: Decreased Breath Sounds, Prolonged Expiratory Phase, Rales, NORMAL BREATHING PATTERN - Cardiovascular Exam Cardiovascular Exam: REGULAR RHYTHM - GI/Abdominal Exam GI & Abdominal Exam: Normal Bowel Sounds, Soft. absent: Tenderness - Rectal Exam Rectal Exam: NORMAL INSPECTION - Extremities Exam Extremities exam: Positive for: normal inspection - Back Exam Back exam: NORMAL INSPECTION - Neurological Exam Neurological exam: Alert, CN II-XII Intact, Normal Gait, Oriented x3, Reflexes Normal - Psychiatric Exam Psychiatric exam: Normal Affect, Normal Mood - Skin Skin Exam: Dry, Intact, Normal Color, Warm Results - Vital Signs Recent Vital Signs: Last Vital Signs Temp 98.9 F 02/24/18 08:22 Pulse 57 L 02/24/18 08:22 Resp 20 02/24/18 08:22 BP 123/81 02/24/18 08:22 Pulse Ox 99 02/24/18 08:22 - Labs Result Diagrams: 02/24/18 05:55 02/24/18 05:55 Labs: Laboratory Results - last 24 hr 02/23/18 02/24/18 02/24/18 06:30 05:55 05:55 WBC 1.7 L* RBC 3.22 L Hgb 10.0 L Hct 29.3 L MCV 91.0 MCH 31.0 MCHC 34.1 RDW 14.3 Plt Count 68 L D Retic Count Sodium 139 Potassium 3.8 Chloride 107 Carbon Dioxide 24 Anion Gap 12 BUN 18 Creatinine 0.8 Est GFR ( Amer) > 60 Est GFR (Non-Af Amer) > 60 Random Glucose 90 Calcium 8.6 Ferritin 174.0 Total Bilirubin 0.4 AST 29 ALT 16 L Alkaline Phosphatase 60 Total Protein 8.3 H Albumin 3.5 Globulin 4.8 H Albumin/Globulin Ratio 0.7 L Vitamin B12 437 Folate 9.8 Ur L.pneumophila Ag Negative 02/24/18 06:28 WBC RBC Hgb Hct MCV MCH MCHC RDW Plt Count Retic Count 0.8 Sodium Potassium Chloride Carbon Dioxide Anion Gap BUN Creatinine Est GFR ( Amer) Est GFR (Non-Af Amer) Random Glucose Calcium Ferritin Total Bilirubin AST ALT Alkaline Phosphatase Total Protein Albumin Globulin Albumin/Globulin Ratio Vitamin B12 Folate Ur L.pneumophila Ag Assessment & Plan - Assessment and Plan (Free Text) Assessment: PNEUMONIA--R/O ATYPICAL/TB DOUBT PCP PANCYTOPENIA HIV DISEASE Plan: AGREE WITH PRESENT THERAPY WILL OBTAIN ABGS IN AM TO EVALUATE OXYGENATION WILL CONTINUE TO FOLLOW WITH YOU
--- NOTE | 2018-02-24 15:55 | CP.PCM.PN ---
Subjective - Date & Time of Evaluation Date of Evaluation: 02/24/18 Time of Evaluation: 14:00 - Subjective Subjective: Feeling better, still some cough. Objective - Vital Signs/Intake and Output Vital Signs (last 24 hours): Temp Pulse Resp BP Pulse Ox 98.9 F 57 L 20 123/81 99 02/24/18 08:22 02/24/18 08:22 02/24/18 08:22 02/24/18 08:22 02/24/18 08:22 - Medications Medications: Current Medications Albuterol/Ipratropium (Duoneb 3 Mg/0.5 Mg (3 Ml) Ud) 3 ml INH RQ6 PRN PRN Reason: Shortness of Breath Docusate Sodium (Colace) 100 mg PO BID [facility] Last Admin: 02/24/18 08:50 Dose: 100 mg Azithromycin 500 mg/ Sodium (Chloride) 250 mls @ 250 mls/hr IVPB DAILY [facility] PRN Reason: Protocol Last Admin: 02/24/18 08:50 Dose: 250 mls/hr Ceftriaxone Sodium 1 gm/ (Sodium Chloride) 100 mls @ 100 mls/hr IVPB DAILY [facility] Last Admin: 02/24/18 08:51 Dose: 100 mls/hr Methadone HCl (Methadone) 70 mg PO DAILY [facility] Last Admin: 02/24/18 08:57 Dose: 70 mg Pantoprazole Sodium (Protonix Ec Tab) 40 mg PO DAILY [facility] Last Admin: 02/24/18 08:50 Dose: 40 mg - Labs Labs: 02/24/18 05:55 02/24/18 05:55 PT 11.9 Seconds (9.8-13.1) 02/22/18 12:41 INR 1.1 (0.9-1.2) 02/22/18 12:41 APTT 32.5 Seconds (25.6-37.1) 02/22/18 12:41 - Head Exam Head Exam: ATRAUMATIC - Eye Exam Eye Exam: Normal appearance - ENT Exam ENT Exam: Mucous Membranes Dry - Respiratory Exam Respiratory Exam: NORMAL BREATHING PATTERN - Cardiovascular Exam Cardiovascular Exam: +S1, +S2 - GI/Abdominal Exam GI & Abdominal Exam: Normal Bowel Sounds Assessment and Plan (1) Pancytopenia Assessment & Plan: likely HIV related and chronic disease mild to moderate neutropenia; does not require growth factor support no iron, b12, folate deficiency no current transfusion indication declined bone marrow evaluation ?infiltrative bone marrow pathology Status: Acute
--- NOTE | 2018-02-24 17:46 | CP.PCM.PN ---
Subjective - Date & Time of Evaluation Date of Evaluation: 02/24/18 Time of Evaluation: 12:15 - Subjective Subjective: No fever still with productive cough SOB better denies CP no abd pain no N/V no diarrhea Objective - Vital Signs/Intake and Output Vital Signs (last 24 hours): Temp Pulse Resp BP Pulse Ox 97.5 F L 62 19 124/72 99 02/24/18 16:20 02/24/18 16:20 02/24/18 16:20 02/24/18 16:20 02/24/18 16:20 - Medications Medications: Current Medications Albuterol/Ipratropium (Duoneb 3 Mg/0.5 Mg (3 Ml) Ud) 3 ml INH RQ6 PRN PRN Reason: Shortness of Breath Docusate Sodium (Colace) 100 mg PO BID [facility] Last Admin: 02/24/18 17:07 Dose: 100 mg Azithromycin 500 mg/ Sodium (Chloride) 250 mls @ 250 mls/hr IVPB DAILY [facility] PRN Reason: Protocol Last Admin: 02/24/18 08:50 Dose: 250 mls/hr Ceftriaxone Sodium 1 gm/ (Sodium Chloride) 100 mls @ 100 mls/hr IVPB DAILY [facility] Last Admin: 02/24/18 08:51 Dose: 100 mls/hr Methadone HCl (Methadone) 70 mg PO DAILY [facility] Last Admin: 02/24/18 08:57 Dose: 70 mg Pantoprazole Sodium (Protonix Ec Tab) 40 mg PO DAILY [facility] Last Admin: 02/24/18 08:50 Dose: 40 mg - Labs Labs: 02/24/18 05:55 02/24/18 05:55 PT 11.9 Seconds (9.8-13.1) 02/22/18 12:41 INR 1.1 (0.9-1.2) 02/22/18 12:41 APTT 32.5 Seconds (25.6-37.1) 02/22/18 12:41 - Constitutional Appears: No Acute Distress, Unkempt, Older Than Stated Age, Chronically Ill - Head Exam Head Exam: NORMAL INSPECTION, NORMOCEPHALIC - Eye Exam Eye Exam: EOMI, Normal appearance Pupil Exam: NORMAL ACCOMODATION - ENT Exam ENT Exam: Mucous Membranes Moist, Normal External Ear Exam - Neck Exam Neck Exam: Full ROM. absent: Meningismus - Respiratory Exam Respiratory Exam: Rales, Rhonchi, Wheezes, NORMAL BREATHING PATTERN. absent: Respiratory Distress - Cardiovascular Exam Cardiovascular Exam: REGULAR RHYTHM, +S1, +S2 - GI/Abdominal Exam GI & Abdominal Exam: Soft, Normal Bowel Sounds. absent: Tenderness - Extremities Exam Extremities Exam: Full ROM, Normal Capillary Refill. absent: Calf Tenderness - Back Exam Back Exam: Full ROM. absent: CVA tenderness (L), CVA tenderness (R) - Neurological Exam Neurological Exam: Alert, Awake, CN II-XII Intact, Oriented x3 Neuro motor strength exam: Left Upper Extremity: 5, Right Upper Extremity: 5, Left Lower Extremity: 5, Right Lower Extremity: 5 - Psychiatric Exam Psychiatric exam: Normal Affect, Normal Mood - Skin Skin Exam: Dry, Normal Color, Warm Assessment and Plan - Assessment and Plan (Free Text) Assessment: 57 yo male with history of COPD and HIV since 1997 and on triple therapy but missed taking it for over a month, unknown CD4 Ct, came in because of productive cough with yellow sputum x 3 days ago. Pleuritic chest pain noted during coughing. Denied fever or SOB. 1. Pneumonia Right Lower Lobe Infiltrate (CT scan) sputum and blood culture - cont Rocephin 1gm IV daily , Zithromax 500mg IV daily - Legionella : negative - Mycoplasma pending - ID consulted - Pulmonary consult - AFB sputum x 3 - Airborne precaution 2. HIV + unknown status, noncompliant with his antiretrovirals follows up in [facility] check CD4 ct, viral load ID consult with Dr Bya 3. Pancytopenia probably secondary to HIV hematology consult with Dr Osorio 4. Polysubstance abuse on Methadone 70mg PO daily pt positive opioids, cocaine, methadone DVT prophylaxis venodyne boots while in bed avoid anti-coagulant because of low platelets
[2018-02-25 05:05] LABS: ABG ALLEN TEST YES; ARTERIAL BLOOD GAS HCO3 26.2 mmol/L (21-28); ARTERIAL BLOOD GAS HEMOGLOBIN 11.4 g/dL (11.7-17.4); ARTERIAL BLOOD GAS O2 CAPACITY 15.7 mL/dL (16-24); ARTERIAL BLOOD GAS O2 CONTENT 15.4 ML/dL (15-23); ARTERIAL BLOOD GAS O2 SAT 97.9 % (95-98); ARTERIAL BLOOD GAS PCO2 42 mm/Hg (35-45); ARTERIAL BLOOD GAS PH 7.41 (7.35-7.45); ARTERIAL BLOOD GAS PO2 85 mm/Hg (80-100); ARTERIAL BLOOD GAS TCO2 27.9 mmol/L (22-28)
[2018-02-25 06:39] LABS: BASO % 1.1 % (0.0-2.0); EOS # 0.1 K/uL (0.0-0.7); EOS % 8.8 % (0.0-4.0); LYMPH # 0.5 K/uL (1.0-4.3); LYMPH % 34.1 % (20.0-40.0); MEAN CELL VOLUME 90.8 fl (80.0-94.0); MEAN CORPUSCULAR HEMOGLOBIN 30.9 pg (27.0-31.0); MEAN CORPUSCULAR HGB CONC 34.1 g/dL (33.0-37.0); MEAN PLATELET VOLUME 10.7 fl (7.2-11.7); MONO # 0.2 K/uL (0.0-0.8); MONO % 12.7 % (0.0-10.0); NEUT # 0.7 K/uL (1.8-7.0); NEUT % 43.3 % (50.0-75.0); NRBC % 0.4 % (0.0-0.0); RBC 3.25 Mil/uL (4.40-5.90); RED CELL DISTRIBUTION WIDTH 14.1 % (11.5-14.5)
[2018-02-25 07:27] LABS: ALB/GLOB RATIO 0.7 (1.0-2.1); ALBUMIN 3.4 g/dL (3.5-5.0); ALT/SGPT 13 U/L (21-72); AST/SGOT 35 U/L (17-59); BLOOD UREA NITROGEN 20 mg/dl (9-20); CALCIUM 8.7 mg/dL (8.4-10.2); GFR AFRICAN-AMERICAN > 60; GFR NON-AFRICAN AMERICAN > 60
[2018-02-25 07:46] LABS: WHITE BLOOD COUNT 1.5 K/uL (4.8-10.8)
--- NOTE | 2018-02-25 08:34 | CP.PCM.PN ---
Subjective - Date & Time of Evaluation Date of Evaluation: 02/25/18 Time of Evaluation: 08:38 - Subjective Subjective: DENIES CHEST PAINS/SOB UPSET BECAUSE HE IS GETTING TOO MUCH BLOOD WORK ABGS REVIEWED Objective - Vital Signs/Intake and Output Vital Signs (last 24 hours): Temp Pulse Resp BP Pulse Ox 98.8 F 61 19 112/66 100 02/25/18 00:00 02/25/18 00:00 02/25/18 00:00 02/25/18 00:00 02/25/18 00:00 - Medications Medications: Current Medications Albuterol/Ipratropium (Duoneb 3 Mg/0.5 Mg (3 Ml) Ud) 3 ml INH RQ6 PRN PRN Reason: Shortness of Breath Docusate Sodium (Colace) 100 mg PO BID [facility] Last Admin: 02/24/18 17:07 Dose: 100 mg Azithromycin 500 mg/ Sodium (Chloride) 250 mls @ 250 mls/hr IVPB DAILY [facility] PRN Reason: Protocol Last Admin: 02/24/18 08:50 Dose: 250 mls/hr Ceftriaxone Sodium 1 gm/ (Sodium Chloride) 100 mls @ 100 mls/hr IVPB DAILY [facility] Last Admin: 02/24/18 08:51 Dose: 100 mls/hr Methadone HCl (Methadone) 70 mg PO DAILY [facility] Last Admin: 02/24/18 08:57 Dose: 70 mg Pantoprazole Sodium (Protonix Ec Tab) 40 mg PO DAILY [facility] Last Admin: 02/24/18 08:50 Dose: 40 mg - Labs Labs: 02/25/18 06:00 02/25/18 06:00 PT 11.9 Seconds (9.8-13.1) 02/22/18 12:41 INR 1.1 (0.9-1.2) 02/22/18 12:41 APTT 32.5 Seconds (25.6-37.1) 02/22/18 12:41 - Constitutional Appears: Cachectic - Head Exam Head Exam: ATRAUMATIC, NORMAL INSPECTION, NORMOCEPHALIC - Eye Exam Eye Exam: EOMI, Normal appearance, PERRL Pupil Exam: NORMAL ACCOMODATION, PERRL - ENT Exam ENT Exam: Mucous Membranes Moist, Normal Exam - Neck Exam Neck Exam: Full ROM, Normal Inspection. absent: Lymphadenopathy - Respiratory Exam Respiratory Exam: Decreased Breath Sounds, Prolonged Expiratory Phase, Rales, NORMAL BREATHING PATTERN - Cardiovascular Exam Cardiovascular Exam: REGULAR RHYTHM, +S1, +S2. absent: Murmur - GI/Abdominal Exam GI & Abdominal Exam: Soft, Normal Bowel Sounds. absent: Tenderness - Rectal Exam Rectal Exam: NORMAL INSPECTION - Extremities Exam Extremities Exam: Full ROM, Normal Capillary Refill, Normal Inspection. absent : Joint Swelling, Pedal Edema - Back Exam Back Exam: NORMAL INSPECTION - Neurological Exam Neurological Exam: Alert, Awake, CN II-XII Intact, Normal Gait, Oriented x3 - Psychiatric Exam Psychiatric exam: Normal Affect, Normal Mood - Skin Skin Exam: Dry, Intact, Normal Color, Warm Assessment and Plan - Assessment and Plan (Free Text) Assessment: PNEUMONIA BULLOUS LUNG DZ--PROBABLE COPD HX OF HIV DZ PANCYTOPENIA MULTI-SUBSTANCE USE Plan: CONTINUE CURRENT RX SERIAL CXRS TO EVALUATE PROGRESS OF PNEUMONIA
[2018-02-25] MEDS: Pantoprazole 40 mg EC Tab PO SCH (09:30)
--- NOTE | 2018-02-25 09:56 | CP.PCM.PN ---
Subjective - Date & Time of Evaluation Date of Evaluation: 02/25/18 Time of Evaluation: 09:56 - Subjective Subjective: ID Note- pt. seen and examined today. pt. states he feels better. still has cough but less than before. denies any fever. Objective - Vital Signs/Intake and Output Vital Signs (last 24 hours): Temp Pulse Resp BP Pulse Ox 98 F 57 L 18 113/71 99 02/25/18 09:00 02/25/18 09:00 02/25/18 09:00 02/25/18 09:00 02/25/18 09:00 - Medications Medications: Current Medications Albuterol/Ipratropium (Duoneb 3 Mg/0.5 Mg (3 Ml) Ud) 3 ml INH RQ6 PRN PRN Reason: Shortness of Breath Docusate Sodium (Colace) 100 mg PO BID [facility] Last Admin: 02/25/18 09:30 Dose: 100 mg Azithromycin 500 mg/ Sodium (Chloride) 250 mls @ 250 mls/hr IVPB DAILY [facility] PRN Reason: Protocol Last Admin: 02/24/18 08:50 Dose: 250 mls/hr Ceftriaxone Sodium 1 gm/ (Sodium Chloride) 100 mls @ 100 mls/hr IVPB DAILY [facility] Last Admin: 02/25/18 09:30 Dose: 100 mls/hr Methadone HCl (Methadone) 70 mg PO DAILY [facility] Last Admin: 02/25/18 09:29 Dose: 70 mg Pantoprazole Sodium (Protonix Ec Tab) 40 mg PO DAILY [facility] Last Admin: 02/25/18 09:30 Dose: 40 mg - Labs Labs: - Skin Additional comments: - Constitutional Appears: No Acute Distress - Head Exam Head Exam: ATRAUMATIC - Eye Exam Eye Exam: EOMI - ENT Exam ENT Exam: Normal Oropharynx - Neck Exam Neck exam: Positive for: Full Rom - Respiratory Exam Respiratory Exam: NORMAL BREATHING PATTERN Additional comments: good aeration b/l no wheezing slightly decreased at right base - Cardiovascular Exam Cardiovascular Exam: RRR, +S1, +S2 - GI/Abdominal Exam GI & Abdominal Exam: Normal Bowel Sounds, Soft Additional comments: NT, ND - Extremities Exam Extremities exam: Positive for: normal inspection - Neurological Exam Neurological exam: Alert, Oriented x 3 Laboratory Results - last 72 hr 02/22/18 02/22/18 02/22/18 12:41 12:41 12:41 WBC 2.5 L RBC 3.04 L Hgb 9.9 L Hct 28.1 L MCV 92.5 MCH 32.4 H MCHC 35.1 RDW 14.1 Plt Count 29 L* MPV 9.1 Neut % (Auto) 53.1 Lymph % (Auto) 24.8 [place] % (Auto) 16.8 H Eos % (Auto) 4.9 H Baso % (Auto) 0.4 Neut # (Auto) 1.3 L Lymph # (Auto) 0.6 L [place] # (Auto) 0.4 Eos # (Auto) 0.1 Baso # (Auto) 0.0 Retic Count PT 11.9 INR 1.1 APTT 32.5 pCO2 pO2 HCO3 ABG pH ABG Total CO2 ABG O2 Saturation ABG O2 Content ABG Base Excess ABG Hemoglobin ABG Carboxyhemoglobin POC ABG HHb (Measured) ABG Methemoglobin ABG O2 Capacity Chris Test A-a O2 Difference Hgb O2 Saturation FiO2 Sodium 139 Potassium 3.9 Chloride 106 Carbon Dioxide 24 Anion Gap 13 BUN 17 Creatinine 0.7 L Est GFR ( Amer) > 60 Est GFR (Non-Af Amer) > 60 Random Glucose 64 L Calcium 8.3 L Ferritin Total Bilirubin 0.5 AST 36 ALT 20 L Alkaline Phosphatase 68 Troponin I < 0.0120 NT-Pro-B Natriuret Pep 126 Total Protein 9.1 H Albumin 3.8 Globulin 5.3 H Albumin/Globulin Ratio 0.7 L Vitamin B12 Folate Urine Opiates Screen Urine Methadone Screen Ur Barbiturates Screen Ur Phencyclidine Scrn Ur Amphetamines Screen U Benzodiazepines Scrn U Oth Cocaine Metabols U Cannabinoids Screen Ur L.pneumophila Ag 02/22/18 02/23/18 02/23/18 16:30 05:25 05:25 WBC 1.8 L* RBC 3.54 L Hgb 11.1 L Hct 32.3 L MCV 91.1 MCH 31.2 H MCHC 34.3 RDW 13.8 Plt Count 44 L MPV 9.1 Neut % (Auto) 50.5 Lymph % (Auto) 30.3 [place] % (Auto) 12.9 H Eos % (Auto) 5.3 H Baso % (Auto) 1.0 Neut # (Auto) 0.9 L Lymph # (Auto) 0.5 L [place] # (Auto) 0.2 Eos # (Auto) 0.1 Baso # (Auto) 0.0 Retic Count PT INR APTT pCO2 pO2 HCO3 ABG pH ABG Total CO2 ABG O2 Saturation ABG O2 Content ABG Base Excess ABG Hemoglobin ABG Carboxyhemoglobin POC ABG HHb (Measured) ABG Methemoglobin ABG O2 Capacity Chris Test A-a O2 Difference Hgb O2 Saturation FiO2 Sodium 140 Potassium 3.9 Chloride 105 Carbon Dioxide 25 Anion Gap 14 BUN 13 Creatinine 0.7 L Est GFR ( Amer) > 60 Est GFR (Non-Af Amer) > 60 Random Glucose 91 Calcium 8.8 Ferritin Total Bilirubin AST ALT Alkaline Phosphatase Troponin I NT-Pro-B Natriuret Pep Total Protein Albumin Globulin Albumin/Globulin Ratio Vitamin B12 Folate Urine Opiates Screen Positive H Urine Methadone Screen Positive H Ur Barbiturates Screen Negative Ur Phencyclidine Scrn Negative Ur Amphetamines Screen Negative U Benzodiazepines Scrn Negative U Oth Cocaine Metabols Positive H U Cannabinoids Screen Negative Ur L.pneumophila Ag 02/23/18 02/24/18 02/24/18 06:30 05:55 05:55 WBC 1.7 L* RBC 3.22 L Hgb 10.0 L Hct 29.3 L MCV 91.0 MCH 31.0 MCHC 34.1 RDW 14.3 Plt Count 68 L D MPV Neut % (Auto) Lymph % (Auto) [place] % (Auto) Eos % (Auto) Baso % (Auto) Neut # (Auto) Lymph # (Auto) [place] # (Auto) Eos # (Auto) Baso # (Auto) Retic Count PT INR APTT pCO2 pO2 HCO3 ABG pH ABG Total CO2 ABG O2 Saturation ABG O2 Content ABG Base Excess ABG Hemoglobin ABG Carboxyhemoglobin POC ABG HHb (Measured) ABG Methemoglobin ABG O2 Capacity Chris Test A-a O2 Difference Hgb O2 Saturation FiO2 Sodium 139 Potassium 3.8 Chloride 107 Carbon Dioxide 24 Anion Gap 12 BUN 18 Creatinine 0.8 Est GFR ( Amer) > 60 Est GFR (Non-Af Amer) > 60 Random Glucose 90 Calcium 8.6 Ferritin 174.0 Total Bilirubin 0.4 AST 29 ALT 16 L Alkaline Phosphatase 60 Troponin I NT-Pro-B Natriuret Pep Total Protein 8.3 H Albumin 3.5 Globulin 4.8 H Albumin/Globulin Ratio 0.7 L Vitamin B12 437 Folate 9.8 Urine Opiates Screen Urine Methadone Screen Ur Barbiturates Screen Ur Phencyclidine Scrn Ur Amphetamines Screen U Benzodiazepines Scrn U Oth Cocaine Metabols U Cannabinoids Screen Ur L.pneumophila Ag Negative 02/24/18 02/25/18 02/25/18 06:28 04:11 06:00 WBC 1.5 L* RBC 3.25 L Hgb 10.0 L Hct 29.5 L MCV 90.8 MCH 30.9 MCHC 34.1 RDW 14.1 Plt Count 89 L D MPV 10.7 Neut % (Auto) 43.3 L Lymph % (Auto) 34.1 [place] % (Auto) 12.7 H Eos % (Auto) 8.8 H Baso % (Auto) 1.1 Neut # (Auto) 0.7 L Lymph # (Auto) 0.5 L [place] # (Auto) 0.2 Eos # (Auto) 0.1 Baso # (Auto) 0.0 Retic Count 0.8 PT INR APTT pCO2 42 pO2 85 HCO3 26.2 ABG pH 7.41 ABG Total CO2 27.9 ABG O2 Saturation 97.9 ABG O2 Content 15.4 ABG Base Excess 1.7 ABG Hemoglobin 11.4 L ABG Carboxyhemoglobin 0.9 POC ABG HHb (Measured) 2.1 ABG Methemoglobin 1.2 ABG O2 Capacity 15.7 L Chris Test Yes A-a O2 Difference 12.0 Hgb O2 Saturation 95.8 FiO2 21.0 Sodium Potassium Chloride Carbon Dioxide Anion Gap BUN Creatinine Est GFR ( Amer) Est GFR (Non-Af Amer) Random Glucose Calcium Ferritin Total Bilirubin AST ALT Alkaline Phosphatase Troponin I NT-Pro-B Natriuret Pep Total Protein Albumin Globulin Albumin/Globulin Ratio Vitamin B12 Folate Urine Opiates Screen Urine Methadone Screen Ur Barbiturates Screen Ur Phencyclidine Scrn Ur Amphetamines Screen U Benzodiazepines Scrn U Oth Cocaine Metabols U Cannabinoids Screen Ur L.pneumophila Ag 02/25/18 06:00 WBC RBC Hgb Hct MCV MCH MCHC RDW Plt Count MPV Neut % (Auto) Lymph % (Auto) [place] % (Auto) Eos % (Auto) Baso % (Auto) Neut # (Auto) Lymph # (Auto) [place] # (Auto) Eos # (Auto) Baso # (Auto) Retic Count PT INR APTT pCO2 pO2 HCO3 ABG pH ABG Total CO2 ABG O2 Saturation ABG O2 Content ABG Base Excess ABG Hemoglobin ABG Carboxyhemoglobin POC ABG HHb (Measured) ABG Methemoglobin ABG O2 Capacity Chris Test A-a O2 Difference Hgb O2 Saturation FiO2 Sodium 137 Potassium 3.9 Chloride 104 Carbon Dioxide 26 Anion Gap 11 BUN 20 Creatinine 0.8 Est GFR ( Amer) > 60 Est GFR (Non-Af Amer) > 60 Random Glucose 88 Calcium 8.7 Ferritin Total Bilirubin 0.4 AST 35 ALT 13 L Alkaline Phosphatase 57 Troponin I NT-Pro-B Natriuret Pep Total Protein 8.2 Albumin 3.4 L Globulin 4.8 H Albumin/Globulin Ratio 0.7 L Vitamin B12 Folate Urine Opiates Screen Urine Methadone Screen Ur Barbiturates Screen Ur Phencyclidine Scrn Ur Amphetamines Screen U Benzodiazepines Scrn U Oth Cocaine Metabols U Cannabinoids Screen Ur L.pneumophila Ag Microbiology 02/22/18 19:20 Blood-Venous Blood Culture - Preliminary NO GROWTH AFTER 48 HOURS 02/22/18 19:11 Blood-Venous Blood Culture - Preliminary NO GROWTH AFTER 48 HOURS 02/23/18 18:00 Sputum Gram Stain - Final Assessment and Plan (1) Cough in adult Status: Acute (2) HIV disease Status: Acute (3) Pancytopenia Status: Acute (4) Pneumonia Status: Acute (5) COPD (chronic obstructive pulmonary disease) Status: Acute (6) Lung granuloma Status: Acute - Assessment and Plan (Free Text) Assessment: A/P- 57 year old male with hIV was on HAARt meds apparently has not taken it in amonth admitted with cough and sob and found to have b/l lung abse ? atelectasisi vs infiltrates and granuloma lesion in lung and some calcifications in lung as per CT report and CXr report read by radiologist. afebrile leukopenic pancytopenia could be secondary to HIV marrow infiltration itself vs other etiology such as disseminated MAC. blood cx- neg x 2 sputum cx- -pending urine legionella AG- neg plan- awwait CD4 and VL. await quantiferon Gold. await sputum AFB x 3. airborbne isolation agree with ceftriaxone and zithromax to cover for CAP. f/u pulm rec as well. as per heme/onc note pt. has refused bone marrow biopsy evaluation.
[2018-02-25] MEDS: Azithromycin 500 MG in Sodium Chloride 0.9% 250 ML IVPB SCH (10:44)
--- NOTE | 2018-02-25 17:47 | CP.PCM.PN ---
Subjective - Date & Time of Evaluation Date of Evaluation: 02/25/18 Time of Evaluation: 12:00 - Subjective Subjective: no fever still with cough no SOB no wheezing no CP no abd pain AFB x 1 neg so far Objective - Vital Signs/Intake and Output Vital Signs (last 24 hours): Temp Pulse Resp BP Pulse Ox 98 F 83 18 133/84 95 02/25/18 16:52 02/25/18 16:52 02/25/18 16:52 02/25/18 16:52 02/25/18 16:52 - Medications Medications: Current Medications Albuterol/Ipratropium (Duoneb 3 Mg/0.5 Mg (3 Ml) Ud) 3 ml INH RQ6 PRN PRN Reason: Shortness of Breath Docusate Sodium (Colace) 100 mg PO BID [facility] Last Admin: 02/25/18 16:29 Dose: 100 mg Azithromycin 500 mg/ Sodium (Chloride) 250 mls @ 250 mls/hr IVPB DAILY [facility] PRN Reason: Protocol Last Admin: 02/25/18 10:44 Dose: 250 mls/hr Ceftriaxone Sodium 1 gm/ (Sodium Chloride) 100 mls @ 100 mls/hr IVPB DAILY [facility] Last Admin: 02/25/18 09:30 Dose: 100 mls/hr Methadone HCl (Methadone) 70 mg PO DAILY [facility] Last Admin: 02/25/18 09:29 Dose: 70 mg Pantoprazole Sodium (Protonix Ec Tab) 40 mg PO DAILY [facility] Last Admin: 02/25/18 09:30 Dose: 40 mg - Labs Labs: 02/25/18 06:00 02/25/18 06:00 PT 11.9 Seconds (9.8-13.1) 02/22/18 12:41 INR 1.1 (0.9-1.2) 02/22/18 12:41 APTT 32.5 Seconds (25.6-37.1) 02/22/18 12:41 - Constitutional Appears: No Acute Distress, Unkempt, Older Than Stated Age, Chronically Ill - Head Exam Head Exam: NORMAL INSPECTION, NORMOCEPHALIC - Eye Exam Eye Exam: EOMI, Normal appearance Pupil Exam: NORMAL ACCOMODATION - ENT Exam ENT Exam: Mucous Membranes Moist, Normal External Ear Exam - Neck Exam Neck Exam: Full ROM. absent: Meningismus - Respiratory Exam Respiratory Exam: Rales, Rhonchi, Wheezes, NORMAL BREATHING PATTERN. absent: Respiratory Distress - Cardiovascular Exam Cardiovascular Exam: REGULAR RHYTHM, +S1, +S2 - GI/Abdominal Exam GI & Abdominal Exam: Soft, Normal Bowel Sounds. absent: Tenderness - Extremities Exam Extremities Exam: Full ROM, Normal Capillary Refill. absent: Calf Tenderness - Back Exam Back Exam: Full ROM. absent: CVA tenderness (L), CVA tenderness (R) - Neurological Exam Neurological Exam: Alert, Awake, CN II-XII Intact, Oriented x3 Neuro motor strength exam: Left Upper Extremity: 5, Right Upper Extremity: 5, Left Lower Extremity: 5, Right Lower Extremity: 5 - Psychiatric Exam Psychiatric exam: Normal Affect, Normal Mood - Skin Skin Exam: Dry, Normal Color, Warm Assessment and Plan - Assessment and Plan (Free Text) Assessment: 57 yo male with history of COPD and HIV since 1997 and on triple anti retroviral therapy but missed taking it for over a month, unknown CD4 Ct, came in because of productive cough with yellow sputum x 3 days ago and has Pleuritic chest pain during coughing. Denied fever or SOB. 1. Pneumonia Right Lower Lobe Infiltrate (CT scan) -blood culture: neg so far -Sputum c/s : Staph aureus - cont Rocephin 1gm IV daily , Zithromax 500mg IV daily - Legionella : negative - Mycoplasma pending - ID consulted - Pulmonary consulted - AFB sputum x 1 neg - Airborne precaution 2. HIV + unknown status, noncompliant with his antiretrovirals follows up in [facility] check CD4 ct, viral load ID consult with Dr Bay 3. Pancytopenia probably secondary to HIV hematology consult with Dr Osorio 4. Polysubstance abuse on Methadone 70mg PO daily pt positive opioids, cocaine, methadone DVT prophylaxis venodyne boots while in bed avoid anti-coagulant because of low platelets
[2018-02-25 18:48] LABS: % CD4 (T HELPER CELL) 2 Percent (30-61); % CD8 (SUPPRESSOR T CELL) 35 Percent (12-42); ABSOLUTE CD4 CELLS <20 Cells/mcL (490-1740); ABSOLUTE CD8 CELLS 225 Cells/mcL (180-1170); ABSOLUTE LYMPHOCYTES 653 Cells/mcL (850-3900); HELPER/SUPPRESSOR RATIO 0.06 Ratio (0.86-5.00)
[2018-02-26 06:37] LABS: BASO % 0.8 % (0.0-2.0); EOS # 0.2 K/uL (0.0-0.7); EOS % 8.1 % (0.0-4.0); HEMOGLOBIN 10.1 g/dL (12.0-18.0); LYMPH # 0.6 K/uL (1.0-4.3); LYMPH % 26.7 % (20.0-40.0); MEAN CELL VOLUME 91.2 fl (80.0-94.0); MEAN CORPUSCULAR HEMOGLOBIN 31.1 pg (27.0-31.0); MEAN CORPUSCULAR HGB CONC 34.1 g/dL (33.0-37.0); MEAN PLATELET VOLUME 10.1 fl (7.2-11.7); MONO # 0.4 K/uL (0.0-0.8); MONO % 16.7 % (0.0-10.0); NEUT % 47.7 % (50.0-75.0); NRBC % 0.1 % (0.0-0.0); RBC 3.24 Mil/uL (4.40-5.90); RED CELL DISTRIBUTION WIDTH 13.7 % (11.5-14.5); WHITE BLOOD COUNT 2.1 K/uL (4.8-10.8)
[2018-02-26] MEDS: Azithromycin 500 MG in Sodium Chloride 0.9% 250 ML IVPB SCH (08:55)
[2018-02-26] MEDS: Pantoprazole 40 mg EC Tab PO SCH (10:47)
--- NOTE | 2018-02-26 12:09 | CP.PCM.PN ---
Subjective - Date & Time of Evaluation Date of Evaluation: 02/26/18 Time of Evaluation: 10:30 - Subjective Subjective: Patient seen and examined. Claimed he was feeling much better. Denied SOB. Objective - Vital Signs/Intake and Output Vital Signs (last 24 hours): Temp Pulse Resp BP Pulse Ox 97.9 F 61 20 134/84 99 02/26/18 09:00 02/26/18 09:00 02/26/18 09:00 02/26/18 09:00 02/26/18 09:00 - Medications Medications: Current Medications Albuterol/Ipratropium (Duoneb 3 Mg/0.5 Mg (3 Ml) Ud) 3 ml INH RQ6 PRN PRN Reason: Shortness of Breath Last Admin: 02/26/18 08:32 Dose: 3 ml Docusate Sodium (Colace) 100 mg PO BID [facility] Last Admin: 02/26/18 08:56 Dose: 100 mg Azithromycin 500 mg/ Sodium (Chloride) 250 mls @ 250 mls/hr IVPB DAILY [facility] PRN Reason: Protocol Last Admin: 02/26/18 08:55 Dose: 250 mls/hr Ceftriaxone Sodium 1 gm/ (Sodium Chloride) 100 mls @ 100 mls/hr IVPB DAILY [facility] Last Admin: 02/26/18 10:47 Dose: 100 mls/hr Vancomycin HCl 750 mg/ Sodium (Chloride) 250 mls @ 166.667 mls/hr IVPB Q12 [facility] PRN Reason: Protocol Last Admin: 02/25/18 20:36 Dose: Not Given Methadone HCl (Methadone) 70 mg PO DAILY [facility] Last Admin: 02/26/18 08:56 Dose: 70 mg Pantoprazole Sodium (Protonix Ec Tab) 40 mg PO DAILY [facility] Last Admin: 02/26/18 10:47 Dose: 40 mg - Labs Labs: 02/26/18 05:25 02/25/18 06:00 PT 11.9 Seconds (9.8-13.1) 02/22/18 12:41 INR 1.1 (0.9-1.2) 02/22/18 12:41 APTT 32.5 Seconds (25.6-37.1) 02/22/18 12:41 - Constitutional Appears: No Acute Distress, Cachectic - Head Exam Head Exam: ATRAUMATIC - Eye Exam Eye Exam: absent: Scleral icterus - ENT Exam ENT Exam: Mucous Membranes Moist - Neck Exam Neck Exam: absent: Meningismus - Respiratory Exam Respiratory Exam: absent: Rales, Rhonchi, Wheezes, Respiratory Distress - Cardiovascular Exam Cardiovascular Exam: REGULAR RHYTHM, +S1, +S2 - GI/Abdominal Exam GI & Abdominal Exam: Soft. absent: Tenderness - Rectal Exam Rectal Exam: Deferred - Extremities Exam Extremities Exam: absent: Calf Tenderness, Pedal Edema - Neurological Exam Neurological Exam: Alert, Oriented x3 - Psychiatric Exam Psychiatric exam: Normal Affect - Skin Skin Exam: Dry, Intact Assessment and Plan - Assessment and Plan (Free Text) Assessment: 57 yo male with history of COPD and HIV since 1997 and on triple retroviral therapy but missed taking it for over a month came in because of coughing productive with yellow sputum. Complained of pleuritic chest pain during coughing. Denied fever or SOB. 1. HIV patient was on Triple Retroviral CD4: < 20 CD8: [address] Bay 2. Right Lower Lobe Infiltrate (CT scan) continue Rocephin and Zithromax blood culture: negative sputum culture: Stap aureus AFB sputum - negative (1st set) Dr Devlin on pulmonary consult airborne precaution 3. Pancytopenia probably secondary to HIV infiltration of BM hematology consult with Dr Osorio patient refused BM biopsy 4. Polysubstance Abuse on Methadone 70mg PO daily 5. DVT prophylaxis venodyne boots while in bed avoid anti-coagulant because of low platelets
--- NOTE | 2018-02-26 12:18 | CP.PCM.PN ---
Subjective - Date & Time of Evaluation Date of Evaluation: 02/26/18 Time of Evaluation: 12:18 - Subjective Subjective: ID Note- Pt. seen and examined today. pt. in good spirits and states he is feeling better and his breathing has improved. denies any fever or chills. denies any cough. he is eating well. Objective - Vital Signs/Intake and Output Vital Signs (last 24 hours): Temp Pulse Resp BP Pulse Ox 97.9 F 61 20 134/84 99 02/26/18 09:00 02/26/18 09:00 02/26/18 09:00 02/26/18 09:00 02/26/18 09:00 - Medications Medications: Current Medications Albuterol/Ipratropium (Duoneb 3 Mg/0.5 Mg (3 Ml) Ud) 3 ml INH RQ6 PRN PRN Reason: Shortness of Breath Last Admin: 02/26/18 08:32 Dose: 3 ml Docusate Sodium (Colace) 100 mg PO BID [facility] Last Admin: 02/26/18 08:56 Dose: 100 mg Azithromycin 500 mg/ Sodium (Chloride) 250 mls @ 250 mls/hr IVPB DAILY [facility] PRN Reason: Protocol Last Admin: 02/26/18 08:55 Dose: 250 mls/hr Ceftriaxone Sodium 1 gm/ (Sodium Chloride) 100 mls @ 100 mls/hr IVPB DAILY [facility] Last Admin: 02/26/18 10:47 Dose: 100 mls/hr Vancomycin HCl 750 mg/ Sodium (Chloride) 250 mls @ 166.667 mls/hr IVPB Q12 [facility] PRN Reason: Protocol Last Admin: 02/25/18 20:36 Dose: Not Given Methadone HCl (Methadone) 70 mg PO DAILY [facility] Last Admin: 02/26/18 08:56 Dose: 70 mg Pantoprazole Sodium (Protonix Ec Tab) 40 mg PO DAILY [facility] Last Admin: 02/26/18 10:47 Dose: 40 mg - Labs Labs: - Additional Findings Additional findings: - Constitutional Appears: No Acute Distress - Head Exam Head Exam: ATRAUMATIC - Eye Exam Eye Exam: EOMI - ENT Exam ENT Exam: Normal Oropharynx - Neck Exam Neck exam: Positive for: Full Rom - Respiratory Exam Respiratory Exam: NORMAL BREATHING PATTERN Additional comments: good aeration b/l no wheezing slightly decreased at right base - Cardiovascular Exam Cardiovascular Exam: RRR, +S1, +S2 - GI/Abdominal Exam GI & Abdominal Exam: Normal Bowel Sounds, Soft Additional comments: NT, ND - Extremities Exam Extremities exam: Positive for: normal inspection - Neurological Exam Neurological exam: Alert, Oriented x 3 Laboratory Results - last 72 hr 02/22/18 02/23/18 02/23/18 12:41 06:30 16:56 WBC RBC Hgb Hct MCV MCH MCHC RDW Plt Count MPV Neut % (Auto) Lymph % (Auto) [place] % (Auto) Eos % (Auto) Baso % (Auto) Neut # (Auto) Lymph # (Auto) [place] # (Auto) Eos # (Auto) Baso # (Auto) Retic Count pCO2 pO2 HCO3 ABG pH ABG Total CO2 ABG O2 Saturation ABG O2 Content ABG Base Excess ABG Hemoglobin ABG Carboxyhemoglobin POC ABG HHb (Measured) ABG Methemoglobin ABG O2 Capacity Chris Test A-a O2 Difference Hgb O2 Saturation FiO2 Sodium Potassium Chloride Carbon Dioxide Anion Gap BUN Creatinine Est GFR ( Amer) Est GFR (Non-Af Amer) Random Glucose Calcium Ferritin Total Bilirubin AST ALT Alkaline Phosphatase Total Protein Albumin Globulin Albumin/Globulin Ratio Vitamin B12 Folate Absolute Lymphs (Flow) 653 L % CD4 Cells 2 L Absolute CD4 Count <20 L T-Help/Suppress Ratio 0.06 L % CD8 Cells 35 Absolute CD8 Count 225 T-Lymph Analys Comment See note Ur L.pneumophila Ag Negative Mycoplasma pneumon IgM 2 TB Test (QFT) Nil TB Test Mitogen - Nil TB Test TB - Nil TB Test (QFT) 02/24/18 02/24/18 02/24/18 05:55 05:55 06:28 WBC 1.7 L* RBC 3.22 L Hgb 10.0 L Hct 29.3 L MCV 91.0 MCH 31.0 MCHC 34.1 RDW 14.3 Plt Count 68 L D MPV Neut % (Auto) Lymph % (Auto) [place] % (Auto) Eos % (Auto) Baso % (Auto) Neut # (Auto) Lymph # (Auto) [place] # (Auto) Eos # (Auto) Baso # (Auto) Retic Count 0.8 pCO2 pO2 HCO3 ABG pH ABG Total CO2 ABG O2 Saturation ABG O2 Content ABG Base Excess ABG Hemoglobin ABG Carboxyhemoglobin POC ABG HHb (Measured) ABG Methemoglobin ABG O2 Capacity Chris Test A-a O2 Difference Hgb O2 Saturation FiO2 Sodium 139 Potassium 3.8 Chloride 107 Carbon Dioxide 24 Anion Gap 12 BUN 18 Creatinine 0.8 Est GFR ( Amer) > 60 Est GFR (Non-Af Amer) > 60 Random Glucose 90 Calcium 8.6 Ferritin 174.0 Total Bilirubin 0.4 AST 29 ALT 16 L Alkaline Phosphatase 60 Total Protein 8.3 H Albumin 3.5 Globulin 4.8 H Albumin/Globulin Ratio 0.7 L Vitamin B12 437 Folate 9.8 Absolute Lymphs (Flow) % CD4 Cells Absolute CD4 Count T-Help/Suppress Ratio % CD8 Cells Absolute CD8 Count T-Lymph Analys Comment Ur L.pneumophila Ag Mycoplasma pneumon IgM TB Test (QFT) Nil TB Test Mitogen - Nil TB Test TB - Nil TB Test (QFT) 02/24/18 02/25/18 02/25/18 11:54 04:11 06:00 WBC 1.5 L* RBC 3.25 L Hgb 10.0 L Hct 29.5 L MCV 90.8 MCH 30.9 MCHC 34.1 RDW 14.1 Plt Count 89 L D MPV 10.7 Neut % (Auto) 43.3 L Lymph % (Auto) 34.1 [place] % (Auto) 12.7 H Eos % (Auto) 8.8 H Baso % (Auto) 1.1 Neut # (Auto) 0.7 L Lymph # (Auto) 0.5 L [place] # (Auto) 0.2 Eos # (Auto) 0.1 Baso # (Auto) 0.0 Retic Count pCO2 42 pO2 85 HCO3 26.2 ABG pH 7.41 ABG Total CO2 27.9 ABG O2 Saturation 97.9 ABG O2 Content 15.4 ABG Base Excess 1.7 ABG Hemoglobin 11.4 L ABG Carboxyhemoglobin 0.9 POC ABG HHb (Measured) 2.1 ABG Methemoglobin 1.2 ABG O2 Capacity 15.7 L Chris Test Yes A-a O2 Difference 12.0 Hgb O2 Saturation 95.8 FiO2 21.0 Sodium Potassium Chloride Carbon Dioxide Anion Gap BUN Creatinine Est GFR ( Amer) Est GFR (Non-Af Amer) Random Glucose Calcium Ferritin Total Bilirubin AST ALT Alkaline Phosphatase Total Protein Albumin Globulin Albumin/Globulin Ratio Vitamin B12 Folate Absolute Lymphs (Flow) % CD4 Cells Absolute CD4 Count T-Help/Suppress Ratio % CD8 Cells Absolute CD8 Count T-Lymph Analys Comment Ur L.pneumophila Ag Mycoplasma pneumon IgM TB Test (QFT) Nil 0.06 TB Test Mitogen - Nil 1.85 TB Test TB - Nil <0.00 TB Test (QFT) Negative 02/25/18 02/26/18 06:00 05:25 WBC 2.1 L RBC 3.24 L Hgb 10.1 L Hct 29.5 L MCV 91.2 MCH 31.1 H MCHC 34.1 RDW 13.7 Plt Count 96 L MPV 10.1 Neut % (Auto) 47.7 L Lymph % (Auto) 26.7 [place] % (Auto) 16.7 H Eos % (Auto) 8.1 H Baso % (Auto) 0.8 Neut # (Auto) 1.0 L Lymph # (Auto) 0.6 L [place] # (Auto) 0.4 Eos # (Auto) 0.2 Baso # (Auto) 0.0 Retic Count pCO2 pO2 HCO3 ABG pH ABG Total CO2 ABG O2 Saturation ABG O2 Content ABG Base Excess ABG Hemoglobin ABG Carboxyhemoglobin POC ABG HHb (Measured) ABG Methemoglobin ABG O2 Capacity Chris Test A-a O2 Difference Hgb O2 Saturation FiO2 Sodium 137 Potassium 3.9 Chloride 104 Carbon Dioxide 26 Anion Gap 11 BUN 20 Creatinine 0.8 Est GFR ( Amer) > 60 Est GFR (Non-Af Amer) > 60 Random Glucose 88 Calcium 8.7 Ferritin Total Bilirubin 0.4 AST 35 ALT 13 L Alkaline Phosphatase 57 Total Protein 8.2 Albumin 3.4 L Globulin 4.8 H Albumin/Globulin Ratio 0.7 L Vitamin B12 Folate Absolute Lymphs (Flow) % CD4 Cells Absolute CD4 Count T-Help/Suppress Ratio % CD8 Cells Absolute CD8 Count T-Lymph Analys Comment Ur L.pneumophila Ag Mycoplasma pneumon IgM TB Test (QFT) Nil TB Test Mitogen - Nil TB Test TB - Nil TB Test (QFT) Microbiology 02/23/18 18:00 Sputum Gram Stain - Final 02/23/18 18:00 Sputum Sputum Culture - Final Methicillin Resistant S Aureus 02/22/18 19:20 Blood-Venous Blood Culture - Preliminary NO GROWTH AFTER 3 DAYS 02/22/18 19:11 Blood-Venous Blood Culture - Preliminary NO GROWTH AFTER 3 DAYS 02/23/18 06:30 Other: Please Indicate Mycobacterial Culture - Preliminary Assessment and Plan (1) Cough in adult Status: Acute (2) HIV disease Status: Acute (3) Pancytopenia Status: Acute (4) Pneumonia Status: Acute (5) COPD (chronic obstructive pulmonary disease) Status: Acute (6) Lung granuloma Status: Acute - Assessment and Plan (Free Text) Assessment: A/P- 57 year old male with hIV was on HAARt meds apparently has not taken it in amonth admitted with cough and sob and found to have b/l lung abse ? atelectasisi vs infiltrates and granuloma lesion in lung and some calcifications in lung as per CT report and CXr report read by radiologist. afebrile leukopenic but better than before. pancytopenia could be secondary to HIV marrow infiltration itself vs other etiology such as disseminated MAC. blood cx- neg x 2 sputum cx- -MRSA sputum AFb- neg x 1 urine legionella AG- neg CD4<20 quantiferon Gold- neg mycoplasma IGM- neg plan- continue with airborbne isolation pending 2 more sputum AFb. continue with IV vancomycin as initiated by hospitalist yesterday for mrsa sputum cx . day #2 today. keep trough <15. advise to d/c zithromax at this time. can continue with ceftriaxone day #4. based on very low cd4 advise to place pt. on both MAC prophylaxis with once a week zithromax 1200 mg and PCP prophylaxis would advise mepron 1500 mg once a day 9 advise mepron since bactrim could lead to further leukopenia).
[2018-02-26] MEDS: Atovaquone 750 mg/5 ml Susp UD PO SCH (17:33)
--- NOTE | 2018-02-26 18:10 | CP.PCM.PN ---
Subjective - Date & Time of Evaluation Date of Evaluation: 02/26/18 Time of Evaluation: 13:00 - Subjective Subjective: Breathing better. Objective - Vital Signs/Intake and Output Vital Signs (last 24 hours): Temp Pulse Resp BP Pulse Ox 98.4 F 62 18 128/81 98 02/26/18 17:00 02/26/18 17:00 02/26/18 17:00 02/26/18 17:00 02/26/18 17:00 - Medications Medications: Current Medications Albuterol/Ipratropium (Duoneb 3 Mg/0.5 Mg (3 Ml) Ud) 3 ml INH RQ6 PRN PRN Reason: Shortness of Breath Last Admin: 02/26/18 08:32 Dose: 3 ml Atovaquone (Mepron) 1,500 mg PO DAILY [facility] PRN Reason: Protocol Last Admin: 02/26/18 17:33 Dose: 1,500 mg Azithromycin (Zithromax) 1,200 mg PO QWK [facility] PRN Reason: Protocol Docusate Sodium (Colace) 100 mg PO BID [facility] Last Admin: 02/26/18 17:34 Dose: 100 mg Ceftriaxone Sodium 1 gm/ (Sodium Chloride) 100 mls @ 100 mls/hr IVPB DAILY [facility] Last Admin: 02/26/18 10:47 Dose: 100 mls/hr Vancomycin HCl 750 mg/ Sodium (Chloride) 250 mls @ 166.667 mls/hr IVPB Q12 [facility] PRN Reason: Protocol Last Admin: 02/26/18 12:42 Dose: 166.667 mls/hr Methadone HCl (Methadone) 70 mg PO DAILY [facility] Last Admin: 02/26/18 08:56 Dose: 70 mg Pantoprazole Sodium (Protonix Ec Tab) 40 mg PO DAILY [facility] Last Admin: 02/26/18 10:47 Dose: 40 mg - Labs Labs: 02/26/18 05:25 02/25/18 06:00 PT 11.9 Seconds (9.8-13.1) 02/22/18 12:41 INR 1.1 (0.9-1.2) 02/22/18 12:41 APTT 32.5 Seconds (25.6-37.1) 02/22/18 12:41 - Head Exam Head Exam: ATRAUMATIC - Eye Exam Eye Exam: Normal appearance - ENT Exam ENT Exam: Mucous Membranes Dry - Respiratory Exam Respiratory Exam: NORMAL BREATHING PATTERN - Cardiovascular Exam Cardiovascular Exam: +S1, +S2 - GI/Abdominal Exam GI & Abdominal Exam: Normal Bowel Sounds Assessment and Plan (1) Pancytopenia Assessment & Plan: likely HIV related and chronic disease mild to moderate neutropenia; does not require growth factor support no iron, b12, folate deficiency no current transfusion indication declined bone marrow evaluation ?infiltrative bone marrow pathology Status: Acute
--- NOTE | 2018-02-26 18:10 | CP.PCM.PN ---
Subjective - Date & Time of Evaluation Date of Evaluation: 02/25/18 Time of Evaluation: 12:00 - Subjective Subjective: No complaints. Objective - Vital Signs/Intake and Output Vital Signs (last 24 hours): Temp Pulse Resp BP Pulse Ox 98.4 F 62 18 128/81 98 02/26/18 17:00 02/26/18 17:00 02/26/18 17:00 02/26/18 17:00 02/26/18 17:00 - Medications Medications: Current Medications Albuterol/Ipratropium (Duoneb 3 Mg/0.5 Mg (3 Ml) Ud) 3 ml INH RQ6 PRN PRN Reason: Shortness of Breath Last Admin: 02/26/18 08:32 Dose: 3 ml Atovaquone (Mepron) 1,500 mg PO DAILY [facility] PRN Reason: Protocol Last Admin: 02/26/18 17:33 Dose: 1,500 mg Azithromycin (Zithromax) 1,200 mg PO QWK [facility] PRN Reason: Protocol Docusate Sodium (Colace) 100 mg PO BID [facility] Last Admin: 02/26/18 17:34 Dose: 100 mg Ceftriaxone Sodium 1 gm/ (Sodium Chloride) 100 mls @ 100 mls/hr IVPB DAILY [facility] Last Admin: 02/26/18 10:47 Dose: 100 mls/hr Vancomycin HCl 750 mg/ Sodium (Chloride) 250 mls @ 166.667 mls/hr IVPB Q12 [facility] PRN Reason: Protocol Last Admin: 02/26/18 12:42 Dose: 166.667 mls/hr Methadone HCl (Methadone) 70 mg PO DAILY [facility] Last Admin: 02/26/18 08:56 Dose: 70 mg Pantoprazole Sodium (Protonix Ec Tab) 40 mg PO DAILY [facility] Last Admin: 02/26/18 10:47 Dose: 40 mg - Labs Labs: 02/26/18 05:25 02/25/18 06:00 PT 11.9 Seconds (9.8-13.1) 02/22/18 12:41 INR 1.1 (0.9-1.2) 02/22/18 12:41 APTT 32.5 Seconds (25.6-37.1) 02/22/18 12:41 - Head Exam Head Exam: ATRAUMATIC - Eye Exam Eye Exam: Normal appearance - ENT Exam ENT Exam: Mucous Membranes Dry - Respiratory Exam Respiratory Exam: NORMAL BREATHING PATTERN - Cardiovascular Exam Cardiovascular Exam: +S1, +S2 - GI/Abdominal Exam GI & Abdominal Exam: Normal Bowel Sounds Assessment and Plan (1) Pancytopenia Assessment & Plan: likely HIV related and chronic disease mild to moderate neutropenia; does not require growth factor support no iron, b12, folate deficiency no current transfusion indication declined bone marrow evaluation ?infiltrative bone marrow pathology Status: Acute
[2018-02-27 07:56] VITALS: O2SAT 99
[2018-02-27] MEDS: Pantoprazole 40 mg EC Tab PO SCH (08:13)
[2018-02-27] MEDS: Atovaquone 750 mg/5 ml Susp UD PO SCH (08:14)
--- NOTE | 2018-02-27 12:26 | CP.PCM.PN ---
Subjective - Date & Time of Evaluation Date of Evaluation: 02/27/18 Time of Evaluation: 10:00 - Subjective Subjective: Patient seen and examined. Claimed he was doing alright and had no complaint Objective - Vital Signs/Intake and Output Vital Signs (last 24 hours): Temp Pulse Resp BP Pulse Ox 98.0 F 57 L 19 118/74 99 02/27/18 07:56 02/27/18 07:56 02/27/18 07:56 02/27/18 07:56 02/27/18 07:56 - Medications Medications: Current Medications Albuterol/Ipratropium (Duoneb 3 Mg/0.5 Mg (3 Ml) Ud) 3 ml INH RQ6 PRN PRN Reason: Shortness of Breath Last Admin: 02/26/18 08:32 Dose: 3 ml Atovaquone (Mepron) 1,500 mg PO DAILY [facility] PRN Reason: Protocol Last Admin: 02/27/18 08:14 Dose: 1,500 mg Azithromycin (Zithromax) 1,200 mg PO QWK [facility] PRN Reason: Protocol Docusate Sodium (Colace) 100 mg PO BID [facility] Last Admin: 02/27/18 08:13 Dose: 100 mg Ceftriaxone Sodium 1 gm/ (Sodium Chloride) 100 mls @ 100 mls/hr IVPB DAILY [facility] Last Admin: 02/27/18 08:12 Dose: 100 mls/hr Vancomycin HCl 750 mg/ Sodium (Chloride) 250 mls @ 166.667 mls/hr IVPB Q12 [facility] PRN Reason: Protocol Last Admin: 02/27/18 08:13 Dose: 166.667 mls/hr Methadone HCl (Methadone) 70 mg PO DAILY [facility] Last Admin: 02/27/18 08:12 Dose: 70 mg Pantoprazole Sodium (Protonix Ec Tab) 40 mg PO DAILY [facility] Last Admin: 02/27/18 08:13 Dose: 40 mg - Labs Labs: 02/26/18 05:25 02/25/18 06:00 PT 11.9 Seconds (9.8-13.1) 02/22/18 12:41 INR 1.1 (0.9-1.2) 02/22/18 12:41 APTT 32.5 Seconds (25.6-37.1) 02/22/18 12:41 - Constitutional Appears: No Acute Distress, Cachectic - Head Exam Head Exam: ATRAUMATIC - Eye Exam Eye Exam: absent: Scleral icterus - ENT Exam ENT Exam: Mucous Membranes Dry - Neck Exam Neck Exam: absent: Meningismus - Respiratory Exam Respiratory Exam: absent: Rales, Rhonchi, Wheezes, Respiratory Distress - Cardiovascular Exam Cardiovascular Exam: REGULAR RHYTHM, +S1, +S2 - GI/Abdominal Exam GI & Abdominal Exam: Soft. absent: Tenderness - Rectal Exam Rectal Exam: Deferred - Back Exam Back Exam: NORMAL INSPECTION - Neurological Exam Neurological Exam: Alert, Oriented x3 - Psychiatric Exam Psychiatric exam: Normal Affect - Skin Skin Exam: Dry, Intact Assessment and Plan - Assessment and Plan (Free Text) Assessment: 57 yo male with history of COPD and HIV since 1997 and on HAARt meds but stopped taking it for over a month came in because of coughing productive with yellow sputum associated with pleuritic pain on coughing. Denied fever or SOB. 1. HIV off HAARt meds for over a month CD4: < 20 sputum culture grew MRSA sputum AFB x 1: negative QFT TB test: negative Mycoplasma and Legionella: negative Dr Bay recommended to DC IV Zithromax and switch to PO Zithromax 1200mg PO weekly for prophylaxis Atovaquone 1500mg PO daily for prophylaxis for PCP Vanco 750mg IV q 12hrs for MRSA Vanco trough 2. Right Lower Lobe Infiltrate (CT scan) continue Joe Devlin on pulmonary consult airborne precaution 3. Pancytopenia probably secondary to HIV infiltration of BM hematology consult with Dr Osorio appreciated patient refused BM biopsy 4. Polysubstance Abuse on Methadone 70mg PO daily 5. DVT prophylaxis venodyne boots while in bed avoid anti-coagulant because of low platelets
--- NOTE | 2018-02-27 12:33 | CP.PCM.PN ---
Subjective - Date & Time of Evaluation Date of Evaluation: 02/27/18 Time of Evaluation: 12:05 - Subjective Subjective: No complaints. Objective - Vital Signs/Intake and Output Vital Signs (last 24 hours): Temp Pulse Resp BP Pulse Ox 98.0 F 57 L 19 118/74 99 02/27/18 07:56 02/27/18 07:56 02/27/18 07:56 02/27/18 07:56 02/27/18 07:56 - Medications Medications: Current Medications Albuterol/Ipratropium (Duoneb 3 Mg/0.5 Mg (3 Ml) Ud) 3 ml INH RQ6 PRN PRN Reason: Shortness of Breath Last Admin: 02/26/18 08:32 Dose: 3 ml Atovaquone (Mepron) 1,500 mg PO DAILY LAURA PRN Reason: Protocol Last Admin: 02/27/18 08:14 Dose: 1,500 mg Azithromycin (Zithromax) 1,200 mg PO QWK LARUA PRN Reason: Protocol Docusate Sodium (Colace) 100 mg PO BID LAURA Last Admin: 02/27/18 08:13 Dose: 100 mg Ceftriaxone Sodium 1 gm/ (Sodium Chloride) 100 mls @ 100 mls/hr IVPB DAILY LAURA Last Admin: 02/27/18 08:12 Dose: 100 mls/hr Vancomycin HCl 750 mg/ Sodium (Chloride) 250 mls @ 166.667 mls/hr IVPB Q12 LAURA PRN Reason: Protocol Last Admin: 02/27/18 08:13 Dose: 166.667 mls/hr Methadone HCl (Methadone) 70 mg PO DAILY LAURA Last Admin: 02/27/18 08:12 Dose: 70 mg Pantoprazole Sodium (Protonix Ec Tab) 40 mg PO DAILY LAURA Last Admin: 02/27/18 08:13 Dose: 40 mg - Labs Labs: 02/26/18 05:25 02/25/18 06:00 PT 11.9 Seconds (9.8-13.1) 02/22/18 12:41 INR 1.1 (0.9-1.2) 02/22/18 12:41 APTT 32.5 Seconds (25.6-37.1) 02/22/18 12:41 - Head Exam Head Exam: ATRAUMATIC - Eye Exam Eye Exam: Normal appearance - ENT Exam ENT Exam: Mucous Membranes Dry - Respiratory Exam Respiratory Exam: NORMAL BREATHING PATTERN - Cardiovascular Exam Cardiovascular Exam: +S1, +S2 - GI/Abdominal Exam GI & Abdominal Exam: Normal Bowel Sounds Assessment and Plan (1) Pancytopenia Assessment & Plan: likely HIV related and chronic disease mild to moderate neutropenia; does not require growth factor support no iron, b12, folate deficiency no current transfusion indication declined bone marrow evaluation ?infiltrative bone marrow pathology Status: Acute
[2018-02-27 15:55] VITALS: BP 124/75; PULSE 65; RESP 20; TEMP 98.1
--- NOTE | 2018-02-27 18:28 | CP.PCM.DIS ---
Provider - Provider Date of Admission: 02/23/18 14:50 Attending physician: Myles Velasquez MD Consults: Dr Phu Osorio Time Spent in preparation of Discharge (in minutes): 25 Diagnosis - Discharge Diagnosis (1) HIV disease Status: Acute Comment: Zithromax 1200mg PO weekly. Atovaquone 1500mg PO daily. Doxycycline 100mg PO BID x 7 days (2) Pancytopenia Status: Acute Comment: stable. patient refused BM biopsy (3) Pneumonia Status: Acute Comment: took IV Rocephin and IV Zithromax (4) Polysubstance abuse Status: Acute Comment: on Methadone 70mg PO daily Hospital Course - Lab Results Lab Results: Micro Results 02/26/18 08:41 Other: Please Indicate Mycobacterial Culture - Preliminary 02/22/18 19:20 Blood-Venous Blood Culture - Preliminary NO GROWTH AFTER 4 DAYS 02/22/18 19:11 Blood-Venous Blood Culture - Preliminary NO GROWTH AFTER 4 DAYS 02/25/18 17:39 Other: Please Indicate Mycobacterial Culture - Preliminary 02/23/18 18:00 Sputum Gram Stain - Final 02/23/18 18:00 Sputum Sputum Culture - Final Methicillin Resistant S Aureus 02/23/18 06:30 Other: Please Indicate Mycobacterial Culture - Preliminary Most Recent Lab Values WBC 2.1 K/uL (4.8-10.8) L 02/26/18 05:25 RBC 3.24 Mil/uL (4.40-5.90) L 02/26/18 05:25 Hgb 10.1 g/dL (12.0-18.0) L 02/26/18 05:25 Hct 29.5 % (35.0-51.0) L 02/26/18 05:25 MCV 91.2 fl (80.0-94.0) 02/26/18 05:25 MCH 31.1 pg (27.0-31.0) H 02/26/18 05:25 MCHC 34.1 g/dL (33.0-37.0) 02/26/18 05:25 RDW 13.7 % (11.5-14.5) 02/26/18 05:25 Plt Count 96 K/uL (130-400) L 02/26/18 05:25 MPV 10.1 fl (7.2-11.7) 02/26/18 05:25 Neut % (Auto) 47.7 % (50.0-75.0) L 02/26/18 05:25 Lymph % (Auto) 26.7 % (20.0-40.0) 02/26/18 05:25 Barren % (Auto) 16.7 % (0.0-10.0) H 02/26/18 05:25 Eos % (Auto) 8.1 % (0.0-4.0) H 02/26/18 05:25 Baso % (Auto) 0.8 % (0.0-2.0) 02/26/18 05:25 Neut # (Auto) 1.0 K/uL (1.8-7.0) L 02/26/18 05:25 Lymph # (Auto) 0.6 K/uL (1.0-4.3) L 02/26/18 05:25 Barren # (Auto) 0.4 K/uL (0.0-0.8) 02/26/18 05:25 Eos # (Auto) 0.2 K/uL (0.0-0.7) 02/26/18 05:25 Baso # (Auto) 0.0 K/uL (0.0-0.2) 02/26/18 05:25 Retic Count 0.8 % (0.5-1.5) 02/24/18 06:28 PT 11.9 Seconds (9.8-13.1) 02/22/18 12:41 INR 1.1 (0.9-1.2) 02/22/18 12:41 APTT 32.5 Seconds (25.6-37.1) 02/22/18 12:41 pCO2 42 mm/Hg (35-45) 02/25/18 04:11 pO2 85 mm/Hg (80-100) 02/25/18 04:11 HCO3 26.2 mmol/L (21-28) 02/25/18 04:11 ABG pH 7.41 (7.35-7.45) 02/25/18 04:11 ABG Total CO2 27.9 mmol/L (22-28) 02/25/18 04:11 ABG O2 Saturation 97.9 % (95-98) 02/25/18 04:11 ABG O2 Content 15.4 ML/dL (15-23) 02/25/18 04:11 ABG Base Excess 1.7 mmol/L (-2.0-3.0) 02/25/18 04:11 ABG Hemoglobin 11.4 g/dL (11.7-17.4) L 02/25/18 04:11 ABG Carboxyhemoglobin 0.9 % (0.5-1.5) 02/25/18 04:11 POC ABG HHb (Measured) 2.1 % (0.0-5.0) 02/25/18 04:11 ABG Methemoglobin 1.2 % (0.0-3.0) 02/25/18 04:11 ABG O2 Capacity 15.7 mL/dL (16-24) L 02/25/18 04:11 Chris Test Yes 02/25/18 04:11 A-a O2 Difference 12.0 mm/Hg 02/25/18 04:11 Hgb O2 Saturation 95.8 % (95.0-98.0) 02/25/18 04:11 FiO2 21.0 % 02/25/18 04:11 Sodium 137 mmol/l (132-148) 02/25/18 06:00 Potassium 3.9 MMOL/L (3.6-5.0) 02/25/18 06:00 Chloride 104 mmol/L (98-107) 02/25/18 06:00 Carbon Dioxide 26 mmol/L (22-30) 02/25/18 06:00 Anion Gap 11 (10-20) 02/25/18 06:00 BUN 20 mg/dl (9-20) 02/25/18 06:00 Creatinine 0.8 mg/dl (0.8-1.5) 02/25/18 06:00 Est GFR ( Amer) > 60 02/25/18 06:00 Est GFR (Non-Af Amer) > 60 02/25/18 06:00 Random Glucose 88 mg/dL (75-110) 02/25/18 06:00 Calcium 8.7 mg/dL (8.4-10.2) 02/25/18 06:00 Ferritin 174.0 ng/Ml (17.9-464) 02/24/18 05:55 Total Bilirubin 0.4 mg/dl (0.2-1.3) 02/25/18 06:00 AST 35 U/L (17-59) 02/25/18 06:00 ALT 13 U/L (21-72) L 02/25/18 06:00 Alkaline Phosphatase 57 U/L (38-126) 02/25/18 06:00 Troponin I < 0.0120 ng/mL (0.00-0.120) 02/22/18 12:41 NT-Pro-B Natriuret Pep 126 pg/ml (0-900) 02/22/18 12:41 Total Protein 8.2 G/DL (6.3-8.2) 02/25/18 06:00 Albumin 3.4 g/dL (3.5-5.0) L 02/25/18 06:00 Globulin 4.8 gm/dL (2.2-3.9) H 02/25/18 06:00 Albumin/Globulin Ratio 0.7 (1.0-2.1) L 02/25/18 06:00 Vitamin B12 437 pg/mL (239-931) 02/24/18 05:55 Folate 9.8 ng/mL 02/24/18 05:55 Urine Opiates Screen Positive (NEGATIVE) H 02/22/18 16:30 Urine Methadone Screen Positive (NEGATIVE) H 02/22/18 16:30 Ur Barbiturates Screen Negative (NEGATIVE) 02/22/18 16:30 Ur Phencyclidine Scrn Negative (NEGATIVE) 02/22/18 16:30 Ur Amphetamines Screen Negative (NEGATIVE) 02/22/18 16:30 U Benzodiazepines Scrn Negative (NEGATIVE) 02/22/18 16:30 U Oth Cocaine Metabols Positive (NEGATIVE) H 02/22/18 16:30 U Cannabinoids Screen Negative (NEGATIVE) 02/22/18 16:30 Absolute Lymphs (Flow) 653 Cells/mcL (850-3900) L 02/22/18 12:41 % CD4 Cells 2 Percent (30-61) L 02/22/18 12:41 Absolute CD4 Count <20 Cells/mcL (490-1740) L 02/22/18 12:41 T-Help/Suppress Ratio 0.06 Ratio (0.86-5.00) L 02/22/18 12:41 % CD8 Cells 35 Percent (12-42) 02/22/18 12:41 Absolute CD8 Count 225 Cells/mcL (180-1170) 02/22/18 12:41 T-Lymph Analys Comment See note 02/22/18 12:41 Ur L.pneumophila Ag Negative (NEGATIVE) 02/23/18 06:30 Mycoplasma pneumon IgG 2.61 (<=0.90) H 02/23/18 16:56 Mycoplasma pneumon IgM 2 U/mL (<770) 02/23/18 16:56 TB Test (QFT) Nil 0.06 IU/mL 02/24/18 11:54 TB Test Mitogen - Nil 1.85 IU/mL 02/24/18 11:54 TB Test TB - Nil <0.00 IU/mL 02/24/18 11:54 TB Test (QFT) Negative (Negative) 02/24/18 11:54 - Hospital Course Hospital Course: 57 yo male with history of COPD and HIV since 1997 and on HAARt meds but stopped taking it for over a month came in because of coughing productive with yellow sputum associated with pleuritic pain on coughing. CXray showed RLL infiltrate. He was put on respiratory isolation until TB was ruled out. IV Ceftriaxone 1gm daily and IV Zithromax 500mg daily were started as well as IV Vancomycin 750mg q 12 hrs when sputum grew MRSA. He was started on prophylaxis with Zithromax 1200mg PO weekly (after DC of IV Zithromax) and Atovaquone 1500mg PO daily when CD4 turned out less than 20. Vancomycin 1gm IV q 12hrs was also added when sputum grew MRSA. Patient did well and later was discharged in stable condition when 3 sputum tested negative for AFB. Discharge Exam - Head Exam Head Exam: ATRAUMATIC - Eye Exam Eye Exam: absent: Scleral icterus - ENT Exam ENT Exam: Mucous Membranes Moist - Respiratory Exam Respiratory Exam: absent: Rales, Rhonchi, Wheezes, Respiratory Distress - Cardiovascular Exam Cardiovascular Exam: REGULAR RHYTHM, +S1, +S2 - GI/Abdominal Exam GI & Abdominal Exam: Soft. absent: Tenderness - Rectal Exam Rectal Exam: Deferred - Neurological Exam Neurological exam: Alert, Oriented x3 - Psychiatric Exam Psychiatric exam: Normal Affect - Skin Skin Exam: Dry, Intact Discharge Plan - Discharge Medications Prescriptions: RX: Atovaquone [Mepron] 1,500 mg PO DAILY #30 packet RX: Azithromycin 1,200 mg PO QWK #8 tablet - Follow Up Plan Condition: FAIR Disposition: HOME/ ROUTINE Instructions: Chest Pain That Is Not Caused by the Heart (DC), Cough, Adult (DC ), Community-Acquired Pneumonia, Adult (DC) Additional Instructions: follow up with your primary MD in 5-7 days Referrals: Faisal Bay MD [Staff Provider] - Broderick Osorio MD [Staff Provider] -
== END 2018-02-27 18:30 | disposition home or self-care (01) | DRG 714 ==
LOC: H.ER 11:34 → H.ERHOLD 15:10 → H.MEDSURG1 16:10 → OBSVTOIN 02-23 14:50 → H.MEDSURG1 02-23 18:13
DX: J18.9 Pneumonia, unspecified organism (principal); B20 Human immunodeficiency virus [HIV] disease; F11.20 Opioid dependence, uncomplicated; F14.10 Cocaine abuse, uncomplicated; J44.0 Chronic obstructive pulmonary disease with (acute) lower respiratory infection; D70.3 Neutropenia due to infection; J84.10 Pulmonary fibrosis, unspecified; B95.62 Methicillin resistant Staphylococcus aureus infection as the cause of diseases classified elsewhere; F17.210 Nicotine dependence, cigarettes, uncomplicated; Z79.899 Other long term (current) drug therapy